=== PATIENT | female | born 1995 | race American Indian/Alaskan Native ===

== ENCOUNTER 2016-06-17 22:04 | Outpatient (CLI) | payer MEDICAID | END 2016-06-17 22:05 | disposition home or self-care (01) | DX: Z32.02 Encounter for pregnancy test, result negative (principal) ==

== ENCOUNTER 2016-11-11 14:09 | Outpatient (CLI) | payer MEDICAID | END 2016-11-11 14:10 | disposition home or self-care (01) | LOC: LAB.R 14:09 | PROVIDERS: ATTEND Family Medicine | DX: Z11.3 Encounter for screening for infections with a predominantly sexual mode of transmission (principal) | CPT/HCPCS: 87081; 87491; 87591 ==

== ENCOUNTER 2017-05-05 13:47 | Emergency (ER) | payer MEDICAID ==
[2017-05-05 14:15] LABS: BILIRUBIN,URINE NEGATIVE (NEGATIVE); PH,URINE 6.5 PH (5.0-7.5); UA w/ MICROSCOPIC CHARGE YES
[2017-05-05 14:29] LABS: UR CULTURE IF IND INDICATED; WBC,URINE 0-3 /HPF (0-5)
[2017-05-05] MEDS ORDERED: ACETAMINOPHEN 1,000 MG/100 ML 100 ML IV STA (14:32)
[2017-05-05] MEDS ORDERED: SODIUM CHLORIDE 0.9% 1,000 ML IV ONE (14:32)
[2017-05-05 14:35] LABS: BASOPHILS % (AUTO) 0.4 %; EOSINOPHILS % (AUTO) 0.3 %; HCT - HEMATOCRIT 34.7 % (37.0-47.0); LYMPHOCYTES # (AUTO) 1.3 10^3/uL (1.5-3.5); LYMPHOCYTES % (AUTO) 12.7 %; MEAN CORPUSCULAR HEMOGLOBIN 30.8 pg (27.0-31.0); MEAN CORPUSCULAR HGB CONC 34.8 g/dL (32.0-36.0); MEAN CORPUSCULAR VOLUME 88.7 fL (81.0-99.0); MEAN PLATELET VOLUME 7.8 fL (7.9-10.8); MONOCYTES # (AUTO) 0.5 10^3/uL (0.0-1.0); MONOCYTES % (AUTO) 5.2 %; NEUTROPHILS # (AUTO) 8.6 10^3/uL (1.5-6.6); NEUTROPHILS % (AUTO) 81.4 %; RED BLOOD COUNT 3.91 10^6/uL (4.20-5.40); RED CELL DISTRIBUTION WIDTH 12.9 % (12.0-15.0); UNCORRECTED WHITE BLOOD COUNT 10.5 x10^3/uL; WHITE BLOOD COUNT 10.5 x10^3/uL (4.8-10.8)
--- NOTE | 2017-05-05 14:35 | ED Physician Documentation ---
History of Present Illness - Stated complaint Stated Complaint: SIDE PX/19 WKS PREG - Chief complaint Chief Complaint: Abd Pain - Additonal information Additional information: hx from pt 21 y/o f states all prior pregnancies ended in early miscarriage sates she is 22 weeks by dates and 18+6 by early sono seen in ER here several days ago for right sided abd pain, had blood urine sono and no cause found pain persisted and pt called to fup at her OB clinic at [place] but was referred back to the ER again no fever + nausea no voit no diarrhea no bleeding feeling baby move no prior surgeries Review of Systems Constitutional: denies: Fever, Chills Cardiac: denies: Chest pain / pressure Respiratory: denies: Dyspnea GI: reports: Abdominal Pain, Nausea. denies: Vomiting, Diarrhea : reports: Now EGA (approx 18-22 weeks EGA) Musculoskeletal: denies: Back pain Endocrine: denies: Easy bruising / bleeding Immunocompromised: denies: Immunocompromised PD PAST MEDICAL HISTORY - Past Medical History Cardiovascular: None Respiratory: None Neuro: None Endocrine/Autoimmune: None GI: None CUSTOMER CONSULTANT: None : None HEENT: None Psych: Bipolar disorder Musculoskeletal: None Derm: None - Past Surgical History Past Surgical History: No - Present Medications Home Medications: Ambulatory Orders Medication Instructions Recorded Confirmed Nitrofurantoin [Macrobid] 100 mg PO BID #14 capsule 05/05/17 - Allergies Allergies/Adverse Reactions: Allergies Allergy/AdvReac Type Severity Reaction Status Date / Time Penicillins Allergy Severe Anaphylaxis Verified 04/01/16 20:39 cetirizine HCl * Allergy Intermediate Respiratory Verified 04/01/16 20:39 [From Zyrtec] codeine Allergy Unknown Verified 04/01/16 20:39 lamotrigine [From Lamictal] Allergy Rash Verified 04/01/16 20:39 loratadine [From Claritin] Allergy Respiratory Verified 04/01/16 20:39 Sulfa (Sulfonamide Allergy Hives Verified 04/01/16 20:39 Antibiotics) - Social History Does the pt smoke?: Yes Smoking Status: Current every day smoker Does the pt drink ETOH?: Yes Does the pt have substance abuse?: No - Immunizations Immunizations are current?: Yes - POLST Patient has POLST: No PD ED PE NORMAL - Vitals Vital signs reviewed: Yes - Cardiac Cardiac: RRR - Respiratory Respiratory: No respiratory distress - Abdomen Abdomen: Other (+ BS gravid TTP rlq higher than typical mcburneys, no rebound or guarding, no RUQ TTP and neg murphys) Results - Vitals Vitals: Vital Signs - 24 hr 05/05/17 05/05/17 05/05/17 13:53 15:56 16:47 Temperature 36.7 C 36.8 C 36.5 C Heart Rate 80 83 84 Respiratory 18 18 15 Rate Blood Pressure 102/54 L 102/45 L 108/59 L O2 Saturation 100 100 96 05/05/17 19:46 Temperature 36.9 C Heart Rate 73 Respiratory 16 Rate Blood Pressure 109/59 L O2 Saturation 100 Oxygen O2 Source Room air - Labs Labs: Laboratory Tests 05/05/17 05/05/17 05/05/17 14:00 14:28 14:28 WBC 10.5 RBC 3.91 L Hgb 12.0 Hct 34.7 L MCV 88.7 MCH 30.8 MCHC 34.8 RDW 12.9 Plt Count 230 MPV 7.8 L Neut # 8.6 H Lymph # 1.3 L Day # 0.5 Eos # 0.0 Baso # 0.0 Absolute Nucleated RBC 0.00 Nucleated RBC % 0.0 Sodium 135 Potassium 4.2 Chloride 103 Carbon Dioxide 23 Anion Gap 9.0 BUN 7 Creatinine 0.4 Estimated GFR (MDRD) 203 Glucose 85 Calcium 8.9 Total Bilirubin 0.4 AST 15 ALT 14 Alkaline Phosphatase 51 Total Protein 6.6 L Albumin 3.7 Globulin 2.9 Albumin/Globulin Ratio 1.3 Lipase 17 L Urine Color YELLOW Urine Clarity CLEAR Urine pH 6.5 Ur Specific [place] 1.025 Urine Protein NEGATIVE Urine Glucose (UA) NEGATIVE Urine Ketones TRACE Urine Occult Blood SMALL H Urine Nitrite POSITIVE H Urine Bilirubin NEGATIVE Urine Urobilinogen 0.2 (NORMAL) Ur Leukocyte Esterase NEGATIVE Urine RBC 0-5 Urine WBC 0-3 Ur Squamous Epith Cells RARE Squamous Urine Bacteria Many H Ur Microscopic Review INDICATED Urine Culture Comments INDICATED - Rads (name of study) abd sono Radiology: See rad report (verbal from radiologist Dr Lee - appendix not seen , no diagnositic, rec MRI) PD MEDICAL DECISION MAKING - ED course ED course: 21 y/o approx 18-22 weeks EGA with RLQ pain already seen in ER and worked up with labs and sono and dc with wait and watch who has worsening RLQ pain and is sent back to the ED again by her OB for concern for appy so got MRI and no appy does have UTI and will tx that Departure - Departure Disposition: 01 Home, Self Care Clinical Impression: UTI (urinary tract infection) Qualifiers: Urinary tract infection type: site unspecified Hematuria presence: without hematuria Qualified Code(s): N39.0 - Urinary tract infection, site not specified Qualifiers: Weeks of gestation: 18 weeks Qualified Code(s): Z3A.18 - 18 weeks gestation of Condition: Good Instructions: ED UTI Cystitis Female Follow-Up: Daiana Diaz MD [Primary Care Provider] - Prescriptions: Nitrofurantoin [Macrobid] 100 mg PO BID #14 capsule Comments: The ultrasound was again non diagnostic for appendicitis so we got a MRI without contrast and the appendix was well seen and normal You do not have appendicitis. You do have a bladder infection and I have prescribed macrobid Please follow up with your OB within the next few days for a follow up. Discharge Date/Time: 05/05/17 19:50
[2017-05-05 14:51] LABS: ALBUMIN/GLOBULIN RATIO 1.3 (1.0-2.2); BILIRUBIN,TOTAL 0.4 mg/dL (0.2-1.0); CREATININE 0.4 mg/dL (0.4-1.0); TOTAL PROTEIN 6.6 g/dL (6.7-8.2)
[2017-05-05 14:53] LABS: CALCIUM 8.9 mg/dL (8.5-10.3); POTASSIUM 4.2 mmol/L (3.5-5.0)
[2017-05-05] MEDS ORDERED: ACETAMINOPHEN 1,000 MG/100 ML 100 ML IV ONE (14:53)
--- NOTE | 2017-05-05 18:37 | MRI Preliminary Report ---
Exam: MRI ABDOMEN W/O Impression: 1. No evidence of appendicitis. 2. Mild related right hydronephrosis. [facility] SITE ID: [id number]
--- NOTE | 2017-05-05 18:39 | MRI Report ---
EXAM: MR ABDOMEN WITHOUT CONTRAST EXAM DATE: 05/05/2017 06:19 PM. CLINICAL HISTORY: Rlq pain, concern appy, sono non diag. COMPARISON: None. TECHNIQUE: Multiplanar breath-hold T1, [id number] sequences obtained through the abdom en on an MR scanner. No contrast administered. FINDINGS: The appendix is not well visualized due to crowding of right lower quadrant vessels and ovary. No eileen dence of a dilated appendix however seen. Right ovary normal in size and signal with a small amount o f periovarian fluid. There is trace dependent fluid within the pelvis likely physiologic. The left ov mi is likewise normal. The uterine cervix is closed measuring 3 cm in length. Posterior fundal placenta without evidence of abruption. No bowel obstruction. There is mild right hydroureteronephrosis secondary to compression o f the mid ureter by the gravid uterus. Impression: 1. No evidence of appendicitis. 2. Mild related right hydronephrosis. [facility] Referring Provider Line: [phone] SITE ID: [id number]
[2017-05-05] MEDS ORDERED: NITROFURANTOIN MACRO 100 MG CAPSULE PO STA (19:24)
[2017-05-05 19:47] VITALS: BP 109/59
[2017-05-05] MEDS ORDERED: NITROFURANTOIN MACRO 100 MG CAPSULE PO ONE (19:48)
--- NOTE | 2017-05-05 19:50 | Ultrasound Preliminary Report ---
Exam: US ABDOMEN LIMITED Impression: 1. The appendix is not seen. 2. No fluid in the right lower quadrant SITE ID: [id number]
--- NOTE | 2017-05-05 19:53 | Ultrasound Report ---
EXAM: ABDOMEN ULTRASOUND LIMITED EXAM DATE: 05/05/2017 04:05 PM. CLINICAL HISTORY: Rlq pain concern for appendicitis, 19 weeks EGA. COMPARISON: None. TECHNIQUE: Real-time scanning was performed with static images obtained. FINDINGS: Right lower quadrant ultrasound was performed. The appendix is not seen. No free fluid or complex flu id seen. Right ovary is normal in size measuring 2.9 x 1.9 x 2.0 cm. heart rate 142 bpm. Impression: 1. The appendix is not seen. 2. No fluid in the right lower quadrant Referring Provider Line: [phone] SITE ID: [id number]
== END 2017-05-05 19:50 | disposition home or self-care (01) ==
LOC: ED 13:47
DX: O23.42 Unspecified infection of urinary tract in pregnancy, second trimester (principal); O99.332 Smoking (tobacco) complicating pregnancy, second trimester; Z3A.18 18 weeks gestation of pregnancy
CPT/HCPCS: 36415; 74181; 76705; 80053; 81001; 83690; 85025; 87086; 87181; 96365; 99283; 99284; A9270; J0131; 81003

== ENCOUNTER 2017-07-30 09:44 | Outpatient (CLI) | payer MEDICAID ==
[2017-07-30 12:40] LABS: BASOPHILS # (AUTO) 0.1 10^3/uL (0.0-0.1); BASOPHILS % (AUTO) 0.4 %; EOSINOPHILS # (AUTO) 0.1 10^3/uL (0.0-0.7); EOSINOPHILS % (AUTO) 0.5 %; HGB - HEMOGLOBIN 10.8 g/dL (12.0-16.0); LYMPHOCYTES % (AUTO) 14.9 %; MEAN CORPUSCULAR HEMOGLOBIN 30.1 pg (27.0-31.0); MEAN CORPUSCULAR HGB CONC 34.1 g/dL (32.0-36.0); MEAN CORPUSCULAR VOLUME 88.4 fL (81.0-99.0); MONOCYTES # (AUTO) 1.2 10^3/uL (0.0-1.0); NEUTROPHILS % (AUTO) 75.2 %; PLT - PLATELET COUNT 210 10^3/uL (130-450); RED CELL DISTRIBUTION WIDTH 13.5 % (12.0-15.0); WHITE BLOOD COUNT 13.3 x10^3/uL (4.8-10.8)
[2017-07-30 12:51] LABS: BILIRUBIN,URINE NEGATIVE (NEGATIVE); GLUCOSE, URINE (UA) 100 mg/dL (NEGATIVE); KETONES,URINE (UA) NEGATIVE (NEGATIVE); LEUKOCYTE ESTERASE, URINE NEGATIVE (NEGATIVE); NITRITE,URINE NEGATIVE (NEGATIVE); OCCULT BLOOD,URINE NEGATIVE (NEGATIVE); PH,URINE 7.5 PH (5.0-7.5); PROTEIN,URINE NEGATIVE (NEGATIVE); UROBILINOGEN,URINE 1 (NORMAL) E.U./dL (NORMAL)
[2017-07-30 12:57] LABS: ALBUMIN 3.1 g/dL (3.2-5.5); BILIRUBIN,TOTAL 0.3 mg/dL (0.2-1.0); CALCIUM 8.3 mg/dL (8.5-10.3); CREATININE 0.4 mg/dL (0.4-1.0); TOTAL PROTEIN 6.1 g/dL (6.7-8.2)
[2017-07-30 12:58] LABS: AMORPHOUS SEDIMENT,UR Moderate /LPF; BACTERIA,URINE Few /HPF (None Seen); CLARITY,URINE CLEAR (CLEAR); CRYSTALS,URINE 6-10 Triple Phos /LPF; MUCUS,URINE Marked Strands; RBC,URINE None Seen /HPF (0-5); SQUAMOUS EPITHELIAL CELL,UR FEW Squamous (<= Few)
[2017-07-30 13:01] LABS: RBC MORPHOLOGY (MULTIPLE) 2+ ANISOCYTOSIS (NORMAL)
[2017-07-31 14:09] LABS: HEPATITIS C ANTIBODY NON-REACTIVE (NON-REACTIVE)
[2017-08-03 12:51] LABS: HSV 2 IGG TYPE SPECIFIC AB <0.90 index
== END 2017-07-30 09:45 | disposition home or self-care (01) ==
LOC: LAB.N 09:44
PROVIDERS: ATTEND Nurse Practitioner
DX: Z34.83 Encounter for supervision of other normal pregnancy, third trimester (principal); A60.00 Herpesviral infection of urogenital system, unspecified
CPT/HCPCS: 36415; 80053; 81001; 84443; 85025; 86695; 86696; 86803; 87491; 87591

== ENCOUNTER 2017-08-13 15:03 | Outpatient (CLI) | payer MEDICAID | END 2017-08-13 15:04 | disposition home or self-care (01) | LOC: LAB.N 15:03 | PROVIDERS: ATTEND Nurse Practitioner | DX: Z34.83 Encounter for supervision of other normal pregnancy, third trimester (principal) | CPT/HCPCS: 36415; 86900; 86901 ==

== ENCOUNTER 2017-08-23 21:04 | Observation (INO) | payer MEDICAID ==
[2017-08-23] MEDS ORDERED: ZOLPIDEM 5 MG TABLET PO PRN (23:14)
[2017-08-23] MEDS ORDERED: FLUCONAZOLE 100 MG TABLET PO SCH (23:45)
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
[2017-08-24] MEDS ORDERED: ONDANSETRON 4 MG/2 ML VIAL IVP PRN (00:16)
[2017-08-24] MEDS ORDERED: SODIUM CHLORIDE FLUSH 0.9% 10 ML SYRINGE ONE ×2 (00:29→06:31)
[2017-08-24] MEDS ORDERED: ONDANSETRON 4 MG/2 ML VIAL ONE (00:29)
[2017-08-24] MEDS: LACTATED RINGERS 1,000 ML IV SCH ×2 (00:45→06:30)
[2017-08-24 01:36] LABS: BASOPHILS # (AUTO) 0.1 10^3/uL (0.0-0.1); BASOPHILS % (AUTO) 0.4 %; EOSINOPHILS # (AUTO) 0.1 10^3/uL (0.0-0.7); EOSINOPHILS % (AUTO) 0.7 %; HGB - HEMOGLOBIN 10.2 g/dL (12.0-16.0); LYMPHOCYTES # (AUTO) 2.4 10^3/uL (1.5-3.5); MEAN CORPUSCULAR HEMOGLOBIN 27.9 pg (27.0-31.0); MEAN CORPUSCULAR HGB CONC 32.5 g/dL (32.0-36.0); MEAN CORPUSCULAR VOLUME 85.7 fL (81.0-99.0); MEAN PLATELET VOLUME 8.2 fL (7.9-10.8); MONOCYTES # (AUTO) 1.2 10^3/uL (0.0-1.0); MONOCYTES % (AUTO) 9.5 %; NEUTROPHILS # (AUTO) 9.1 10^3/uL (1.5-6.6); NEUTROPHILS % (AUTO) 70.4 %; PLT - PLATELET COUNT 216 10^3/uL (130-450); RED BLOOD COUNT 3.65 10^6/uL (4.20-5.40); RED CELL DISTRIBUTION WIDTH 13.6 % (12.0-15.0); WHITE BLOOD COUNT 12.9 x10^3/uL (4.8-10.8)
[2017-08-24 01:40] LABS: MUDS CUTOFF CONCENTRATIONS CUTOFF CONC BELOW:
[2017-08-24 01:54] LABS: AMPHETAMINE SCREEN,URINE NEGATIVE (NEGATIVE); BENZODIAZEPINES SCREEN, URINE NEGATIVE (NEGATIVE); COCAINE SCREEN URINE NEGATIVE (NEGATIVE); METHADONE SCREEN, URINE NEGATIVE (NEGATIVE); METHAMPHETAMINES SCREEN, URINE NEGATIVE (NEGATIVE); OPIATE SCREEN, URINE NEGATIVE (NEGATIVE); OXYCODONE SCREEN, URINE NEGATIVE (NEGATIVE); PROPOXYPHENE SCREEN, URINE NEGATIVE (NEGATIVE); TRICYCLIC ANTIDEPRESSANT,URINE NEGATIVE (NEGATIVE)
[2017-08-24 03:31] LABS: HB2 TOTAL 11.1 g/dL; HEMOGLOBIN A1C 0.31 g/dL; HEMOGLOBIN A1C % 4.7 % (4.6-6.2)
[2017-08-24 03:32] LABS: BILIRUBIN,URINE NEGATIVE (NEGATIVE); GLUCOSE, URINE (UA) 100 mg/dL (NEGATIVE); KETONES,URINE (UA) 15 mg/dL (NEGATIVE); LEUKOCYTE ESTERASE, URINE NEGATIVE (NEGATIVE); NITRITE,URINE NEGATIVE (NEGATIVE); OCCULT BLOOD,URINE NEGATIVE (NEGATIVE); PROTEIN,URINE NEGATIVE (NEGATIVE); UROBILINOGEN,URINE 1 (NORMAL) E.U./dL (NORMAL)
[2017-08-24 03:36] LABS: CLARITY,URINE CLEAR (CLEAR)
[2017-08-24 03:38] LABS: BACTERIA,URINE Rare /HPF (None Seen); SQUAMOUS EPITHELIAL CELL,UR MOD Squamous (<= Few)
[2017-08-24] MEDS ORDERED: BETAMETHASONE 30 MG/5 ML VIAL IM SCH (12:00)
--- NOTE | 2017-08-24 14:45 | Discharge Plan ---
Discharge Plan Disposition: 01 Home, Self Care Condition: Good Diet: Regular Activity Restrictions: Activity as Tolerated Shower Restrictions: No Driving Restrictions: No Weight Bearing: Full Weight Additional Instructions or Follow Up instructions: Patient was instructed to keep her [facility] perinatology appointment. She was informed that unless she has a evaluation, our service will not be able to care for her. We made her an appointment for which she states she intends to change it. She will be seen tomorrow around noon for her second dose of betamethasone. On Wednesday no she will have a formal anatomy scan ultrasound. If she keeps her appointment at [facility] she is instructed to send a copy of their records to us. After review we will be able to determine if we can care for her. She is scheduled for a follow-up at our offices in 2-3 weeks to make that determination No Smoking: If you smoke, Please STOP! Call for help. Follow-up with: Vicki Garcia DNP [Primary Care Provider] -
[2017-08-24 15:34] VITALS: BP 114/62
--- NOTE | 2017-08-24 15:39 | Ultrasound Report ---
OB ULTRASOUND: 08/24/2017 CLINICAL INDICATION: Late care, check dating. TECHNIQUE: Real-time scanning was performed with mortician supplies sales representative static images obtained. LAST MENSTRUAL PERIOD 12/24/2016 Clinical Age 34 weeks 5 days US Age 34 weeks 0 days EFW Hadlock 2331 grams EFW% Hadlock -- Heart Rate 139 bpm EDC 09/30/2017 US EDC 10/05/2017 BPD Hadlock 34 weeks 0 days; Mean mm 84 HC Hadlock 35 weeks 0 days; Mean mm 313 AC Hadlock 34 weeks 5 days; Mean mm 307 FL Hadlock 32 weeks 2 days; Mean mm 62 Presentation cephalic Placental Location posterior Cervical Length -- Amniotic Fluid ADIA 12.54 cm; MVP 4.4 cm FINDINGS There is a single viable intrauterine gestation, in cephalic presentation. heart rate is 139 BPM. By size, the fetus measures 34 weeks 0 days (34 weeks 5 days by patient-given dating). Amniotic fluid volume is normal, with an ADIA of 12.5. The placenta is posterior, without evidence of previa. Estimated weight by Hadlock method is 2331 grams. Due to the emergent nature of the procedure, full anatomy scan was deferred, to a scheduled appointment on 08/26/2017. IMPRESSION: SINGLE VIABLE INTRAUTERINE GESTATION, WITH SIZE IN KEEPING WITH PROVIDED DATA. POSTERIOR PLACENTA, WITHOUT EVIDENCE OF PREVIA. TD: 08/24/2017 11:08 YANICK
--- NOTE | 2017-08-24 22:30 | DISCHARGE SUMMARY ---
Physician: Guillermo Nelson MD DATE OF ADMISSION: 08/23/2017 DATE OF DISCHARGE: 08/24/2017 CHIEF COMPLAINT 1. contractions. 2. Fragmented and inadequate obstetric care. 3. Bipolar disorder. 4. Epilepsy (patient denies). 5. Limited personal resources/poverty. 6. Repetitive spontaneous . 7. Abnormal 1 hour glucose challenge. HISTORY: The patient is a 21-year-old 6, para 0-0-5-0 woman who is at 33 weeks and 6 days gestation. She has had fragmented care. She was originally seen at [facility], but expelled from their practice due to behavior issues. The records note seizure disorder, but the patient states that she has never had seizures. She was referred from our practice to Perinatology due to her high risk profile. She states that she could not find transportation and never followed up on those visits. Reference typewritten H and P. HOSPITAL COURSE: Patient was examined and found to have uterine contractions, but they did not coalesce into a labor pattern. The cervix was thick and closed with a discharge present. GC and chlamydia cultures were taken. Patient has fragmented care and we took the opportunity to organize her care. She states that she is A positive, while the record states A negative. Patient underwent 1 hour glucose challenge, which was 158. She had a hemoglobin A1c that was 4.7, in the normal range. We will arrange for a 3-hour glucose challenge test. Patient underwent a quick assessment ultrasound, which revealed a single viable IUP with a heart rate of 139. Weight was 23 31 grams consistent with 34 weeks 0 days. Full anatomy scan was scheduled for . Patient underwent social work assessment. Social work assessment was performed and arrangements were made for transportation to the [facility]. We obtained an appointment on with Dr. Iglesias. The patient states she will probably not be able to keep this appointment and will reschedule. We offered to reschedule for her, but she declined. Patient was discharged to home. She is instructed to come back tomorrow for her second series of betamethasone injections 12 mg. She will have a formal ultrasound on for anatomy. After completing all the above, she will be seen in our offices in 2- 3 weeks to determine if it is appropriate to care for her at a level 1 center. TD: 08/24/2017 22:29 YANICK
== END 2017-08-24 15:45 | disposition home or self-care (01) ==
LOC: WFO 21:04 → FBP 21:06 → WFO 23:00 → FBP 23:06
PROVIDERS: ADMIT Obstetrics & Gynecology; ATTEND Obstetrics & Gynecology
DX: O09.33 Supervision of pregnancy with insufficient antenatal care, third trimester (principal); Z3A.33 33 weeks gestation of pregnancy; O99.810 Abnormal glucose complicating pregnancy; O99.343 Other mental disorders complicating pregnancy, third trimester; F31.9 Bipolar disorder, unspecified; O99.333 Smoking (tobacco) complicating pregnancy, third trimester; F17.200 Nicotine dependence, unspecified, uncomplicated; Z59.6 Low income
CPT/HCPCS: 76805; 80306; 81001; 82950; 83036; 85025; 86850; 86900; 86901; 87081; 87491; 87591; 96361; 96372; 96374; 99214; A9270; G0378; J7120; 87086

== ENCOUNTER 2017-08-25 12:49 | Outpatient (CLI) | payer MEDICAID ==
[2017-08-25] MEDS ORDERED: BETAMETHASONE 30 MG/5 ML VIAL IM SCH (12:56)
== END 2017-08-25 13:04 | disposition home or self-care (01) ==
LOC: WFO 12:49 → FBP 12:51 → WFO 13:04
PROVIDERS: ATTEND Obstetrics & Gynecology
DX: Z34.83 Encounter for supervision of other normal pregnancy, third trimester (principal)
CPT/HCPCS: 96372

== ENCOUNTER 2017-08-26 07:34 | Outpatient (CLI) | payer MEDICAID ==
--- NOTE | 2017-08-26 14:44 | Ultrasound Report ---
OB ULTRASOUND: 08/26/2017 CLINICAL INDICATION: anatomy, late care. TECHNIQUE: Real-time scanning was performed with canvas products sales representative static images obtained. LAST MENSTRUAL PERIOD 12/29/2016 Clinical Age 34 weeks 2 days US Age 34 weeks 0 days EFW Hadlock 2394 grams EFW% Hadlock 44% Heart Rate 130 bpm EDC 10/05/2017 US EDC 10/07/2017 BPD Hadlock 33 weeks 2 days; Mean mm 83 HC Hadlock 34 weeks 6 days; Mean mm 312 AC Hadlock 35 weeks 0 days; Mean mm 311 FL Hadlock 33 weeks 0 days; Mean mm 64 Presentation cephalic Placental Location posterior Cervical Length not seen Amniotic Fluid ADIA 9.3 cm; MVP 3.5 cm FINDINGS There is a single viable intrauterine gestation, in cephalic presentation. heart rate is 130 BPM. The placenta is posterior. Amniotic fluid volume is normal, with an ADIA of 9.3. By size, the fetus measures 34 weeks 0 days (34 weeks 2 days by sonogram on , 35 weeks 0 days by provided data). The following anatomic structures were visualized and appear normal: The intracranial contents, including the ventricles and posterior fossa; the lips and orbits; the spine; the heart, including 4 chamber view and outflow tracts, and diaphragm; the abdominal contents, including the stomach, the bilateral kidneys, and urinary bladder, as well as a normal 3-vessel cord insertion; 4 limbs. Due to late dates and positioning, cord insertion, placental cord insertion, and leg-foot relationships are suboptimally visualized. No free fluid or adnexal lesion is appreciated. IMPRESSION: SINGLE VIABLE INTRAUTERINE GESTATION, WITH SIZE IN KEEPING WITH PROVIDED DATA. NONVISUALIZATION OF THE AND PLACENTAL CORD INSERTIONS WELL THE BILATERAL FOOT-LEG RELATIONSHIPS, DUE TO LATE DATES AND POSITIONING. OTHERWISE, NORMAL ANATOMIC SURVEY. TD: 08/26/2017 12:31 YANICK
== END 2017-08-26 07:35 | disposition home or self-care (01) ==
LOC: DI 07:34
PROVIDERS: ATTEND Obstetrics & Gynecology
DX: Z36.9 Encounter for antenatal screening, unspecified (principal)
CPT/HCPCS: 76811

== ENCOUNTER 2017-09-04 00:09 | Outpatient (CLI) | payer MEDICAID ==
[2017-09-04 00:30] VITALS: BP 111/71
== END 2017-09-04 01:19 | disposition home or self-care (01) ==
LOC: WFO 00:09 → FBP 00:11 → WFO 01:19
PROVIDERS: ATTEND Obstetrics & Gynecology
DX: O09.33 Supervision of pregnancy with insufficient antenatal care, third trimester (principal); Z53.21 Procedure and treatment not carried out due to patient leaving prior to being seen by health care provider; Z3A.36 36 weeks gestation of pregnancy
CPT/HCPCS: 99212

== ENCOUNTER 2017-09-12 04:47 | Outpatient (CLI) | payer MEDICAID ==
[2017-09-12 08:14] VITALS: BP 113/64
== END 2017-09-12 09:10 | disposition home or self-care (01) ==
LOC: WFO 04:47 → FBP 04:49 → WFO 09:10
PROVIDERS: ATTEND Obstetrics & Gynecology
DX: Z34.83 Encounter for supervision of other normal pregnancy, third trimester (principal)
CPT/HCPCS: 99213

== ENCOUNTER 2017-09-14 23:39 | Outpatient (CLI) | payer MEDICAID ==
[2017-09-15 01:21] LABS: RUPTURE OF MEMBRANES PLUS NEGATIVE (NEGATIVE)
[2017-09-15 04:00] VITALS: BP 119/78
--- NOTE | 2017-09-15 14:45 | PROVIDER PROGRESS NOTE ---
Subjective - Prog Note Date Prog Note Date: 09/15/17 Prog Note Time: 06:30 - Subjective Pt reports feeling: No change Subjective: Marie Araujo is a 21-year-old primigravida at 37 weeks who reports regular uterine contractions and possible leaking membranes. She has no fevers chills or UTI symptoms. She reports no pelvic pressure Objective - Vital Signs/Intake & Output Reviewed Vital Signs: Yes - Objective General Appearance: positive: No acute distress Respiratory: positive: Breath sounds nml Cardiovascular: positive: Regular rate & rhythm Abdomen: positive: Non-tender Extremities: positive: Non-tender, No pedal edema Comments/Other: Pelvic exam: After 2 hours of walking patient's cervix has not changed. There is no evidence of ruptured membranes. Patient instructed to rest at home. Signs and symptoms of labor reviewed. Regular contraction pattern not palpated ; normal resting tone; cervix unchanged despite 2 hours at 2 cm -1 station bag water intact. amnio stat negative external monitors strip no contractions baseline 150 reactive - Lab Results Other Labs: Lab Results x24hrs 09/15/17 Range/Units 00:20 Membranes Rupture NEGATIVE (NEGATIVE) - Other Results/Comments Other Results/Comments: Note physical evaluation done by nursing staff transfer text Assessment/Plan - Assessment/Plan Assessment: No cervical change; 1 heart tracing; not in labor; Plan: Patient sent home with warning sign and callback instructions. She will keep her next office appointment.
== END 2017-09-15 03:38 | disposition home or self-care (01) ==
LOC: WFO 23:39 → FBP 23:40 → WFO 09-15 03:38
PROVIDERS: ATTEND Obstetrics & Gynecology
DX: Z34.83 Encounter for supervision of other normal pregnancy, third trimester (principal)
CPT/HCPCS: 84112; 99214

== ENCOUNTER 2017-09-16 00:02 | Inpatient (IN) | payer MEDICAID ==
[2017-09-16] MEDS ORDERED: SODIUM CHLORIDE FLUSH 0.9% 10 ML SYRINGE IVP PRN (00:33)
[2017-09-16] MEDS ORDERED: OXYTOCIN/SODIUM CHLORIDE 500 ML IV ONE (00:52)
[2017-09-16] MEDS ORDERED: SODIUM CHLORIDE FLUSH 0.9% 10 ML SYRINGE IVP SCH (01:00)
[2017-09-16 01:48] LABS: BASOPHILS # (AUTO) 0.1 10^3/uL (0.0-0.1); BASOPHILS % (AUTO) 0.9 %; EOSINOPHILS # (AUTO) 0.1 10^3/uL (0.0-0.7); EOSINOPHILS % (AUTO) 0.5 %; HGB - HEMOGLOBIN 10.7 g/dL (12.0-16.0); MEAN CORPUSCULAR HEMOGLOBIN 28.3 pg (27.0-31.0); MEAN CORPUSCULAR HGB CONC 34.3 g/dL (32.0-36.0); MEAN CORPUSCULAR VOLUME 82.6 fL (81.0-99.0); MEAN PLATELET VOLUME 8.3 fL (7.9-10.8); MONOCYTES # (AUTO) 1.4 10^3/uL (0.0-1.0); MONOCYTES % (AUTO) 10.3 %; NEUTROPHILS % (AUTO) 73.3 %; PLT - PLATELET COUNT 208 10^3/uL (130-450); RED BLOOD COUNT 3.78 10^6/uL (4.20-5.40); RED CELL DISTRIBUTION WIDTH 13.8 % (12.0-15.0); WHITE BLOOD COUNT 13.6 x10^3/uL (4.8-10.8)
[2017-09-16] MEDS ORDERED: fent/BUPIV 2 MCG/0.125% 250 ML EP ONE (02:08)
[2017-09-16] MEDS: LACTATED RINGERS 1,000 ML IV SCH ×2 (02:39→09:01)
[2017-09-16] MEDS: ONDANSETRON 4 MG/2 ML VIAL IVP PRN ×2 (05:32→09:56)
[2017-09-16] MEDS: OXYTOCIN/SODIUM CHLORIDE 500 ML IV SCH ×2 (06:01→15:10)
--- NOTE | 2017-09-16 06:19 | PROVIDER PROGRESS NOTE ---
Labor Progress Note - Uterine Monitoring Uterine Monitoring Mode: positive: External toco Contraction Intensity: positive: Mild to moderate Uterine Resting Tone: positive: Soft - Monitoring Monitor Mode: positive: External ultrasound Heart Rate Baseline: 135 Heart Rate Variability: positive: Moderate (6-25 bmp) Accelerations: positive: Present, 15x15 Decelerations: positive: None Strip Review: positive: Category I - Vaginal Exam Dilation (in cm): 5 Effacement (%): 100% Station: 0 - Labor Progress Note Labor Progress Note/Additional Text: Patient currently has epidural in place and feels very comfortable. Her progress is been slow and not all contractions palpate to the moderate range. Therefore we will augment with low dose Pitocin drip. AROM clear fluid
[2017-09-16] MEDS ORDERED: OXYTOCIN/SODIUM CHLORIDE 500 ML IV SCH (07:00)
--- NOTE | 2017-09-16 08:02 | PROVIDER PROGRESS NOTE ---
Labor Progress Note - Uterine Monitoring Contraction Intensity: positive: Mild - Monitoring Monitor Mode: positive: External ultrasound Heart Rate Baseline: 120 Heart Rate Variability: positive: Moderate (6-25 bmp) Accelerations: positive: Present, 15x15 Decelerations: positive: None Strip Review: positive: Category I - Vaginal Exam Dilation (in cm): 7 Effacement (%): 100% Station: 0 Cervical Position: Midposition - Labor Progress Note Labor Progress Note/Additional Text: Initially, tocodynamometer heart tracing was difficult to follow on external monitor and scalp lead placed. Patient is very comfortable and amniotic fluid remains clear. Nursing staff was instructed to increase the Pitocin since it was only on 2 milliunits. If it becomes difficult to follow contractions IUPC may be placed We again discussed the issue of GBS status. She is aware that GBS can lead to poor outcome inclusive of pneumonia sepsis and in rare occasions . She states that during a hospital encounter GBS culture was taken at 34 weeks and found to be negative. I stated that usually the culture is done at 36 -37 weeks for best reliability. I asked that she consider prophylaxis which she strongly refused. Given patient's mood disorder and prior history of belligerent behavior, it is most important to maintain good rapport in order to optimize chances for a uneventful delivery. Patient will need a health social work professor evaluation and probable CPS referral. This question was not addressed in order to keep the patient in a cooperative mood. Urine toxicology would not be useful since patient had fentanyl. Patient has several medical problems inclusive of juvenile arthritis, and hydro- nephrosis. Her hydronephrosis had improved during her last [facility] check. I explained that we may re-perform renal ultrasound after delivery. Patient states that her arthritis is currently in remission but its course varies.
--- NOTE | 2017-09-16 08:10 | PROVIDER PROGRESS NOTE ---
Subjective - Prog Note Date Prog Note Date: 09/16/17 Prog Note Time: 08:10 - Subjective Subjective: Informed patient that I must go to clinic and will no longer be available. She is informed that Dr. Carey will assume responsibility for obstetric care. Dr. Carey briefed of patient's situation. Objective - Vital Signs/Intake & Output Vital Signs: Vital Signs x48h Temp Pulse Resp BP Pulse Ox 09/16/17 00:13 98.2 F 87 22 124/85 H 99 Intake & Output: Intake & Output 09/13/17 09/14/17 09/15/17 09/16/17 23:59 23:59 23:59 23:59 Intake Total 500.85 Balance 500.85 - Lab Results Fish Bones: 09/16/17 01:30 Other Labs: Lab Results x24hrs 09/16/17 Range/Units 01:30 WBC 13.6 H (4.8-10.8) x10^3/uL RBC 3.78 L (4.20-5.40) 10^6/uL Hgb 10.7 L (12.0-16.0) g/dL Hct 31.2 L (37.0-47.0) % MCV 82.6 (81.0-99.0) fL MCH 28.3 (27.0-31.0) pg MCHC 34.3 (32.0-36.0) g/dL RDW 13.8 (12.0-15.0) % Plt Count 208 (130-450) 10^3/uL MPV 8.3 (7.9-10.8) fL Neut # 10.0 H (1.5-6.6) 10^3/uL Lymph # 2.0 (1.5-3.5) 10^3/uL [place] # 1.4 H (0.0-1.0) 10^3/uL Eos # 0.1 (0.0-0.7) 10^3/uL Baso # 0.1 (0.0-0.1) 10^3/uL Absolute Nucleated RBC 0.03 x10^3/uL Nucleated RBC % 0.2 /100WBC
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
[2017-09-16] MEDS ORDERED: miSOPROStol 200 MCG TABLET ONE (09:43)
[2017-09-16] MEDS ORDERED: MINERAL OIL LIGHT 10 ML MC ONE (09:43)
[2017-09-16] MEDS ORDERED: LIDOCAINE 1% 50 ML MDV ONE (09:45)
[2017-09-16] MEDS ORDERED: ACETAMINOPHEN 325 MG TABLET PO PRN (12:18)
[2017-09-16] MEDS ORDERED: HYDROCORTISONE/PRAMOXINE 10 GM PR PRN (12:18)
[2017-09-16] MEDS ORDERED: HYDROCORTISONE 1% CREAM 28 GM TUBE PR PRN (12:18)
[2017-09-16] MEDS ORDERED: OXYTOCIN/SODIUM CHLORIDE 250 ML IV ONE (12:18)
[2017-09-16] MEDS ORDERED: WITCH HAZEL/GLYCERIN 1 EACH MED..PAD TOP PRN (12:18)
[2017-09-16] MEDS ORDERED: oxyCODONE 5 MG TABLET PO PRN (12:18)
--- NOTE | 2017-09-16 12:29 | DELIVERY NOTE ---
Delivery Note - Labor Labor: positive: Augmented by ARM, Augmented by oxytocin - Infant Delivery Method Delivery Method: positive: Spontaneous vaginal delivery - Presentation Presentation: positive: Vertex, EBONIE - right occiput anterior - Nuchal Cord Nuchal Cord: positive: None (True Knot) - Anesthetic Anesthetic Type: Anesthetic: positive: Lidocaine - 1% plain - Amniotic Fluid Description Amniotic Fluid Description: positive: Moderate meconium - Episiotomy Type Episiotomy Type: positive: None - Laceration Laceration: positive: Labial (First Degree Bilat) - Suture Suture Type: positive: Vicryl Suture Size: positive: 3-0 - Delivery Outcome Delivery Outcome: positive: Livebirth - [place]: positive: Placed in direct skin contact with mother, Suctioned, Bulb syringe, [place] used sex: positive: Female - Cord Cord: positive: 3 vessels, True knot - Placenta Placenta: positive: Intact, Spontaneous - Estimated Blood Loss Estimated Blood Loss (in cc): 300 - Delivery Comments (Free Text/Narrative) Delivery Comments (Free Text/Narrative): Pt has been having contractions for the past 5 days. Last night at about 2345 developed a large red blood clot. Presented to L&D 0038. evaluated and AROM at 0544. Epidural for labor analgesia. Augmented with Pitocin at 0600. progressed to complete at 1019. Pushed well. at 1139 Live female infant Apgars 8/9. EBONIE with compound Hand. True knot seen in the cord. bilateral labial lacerations repaired with local and 3-0 vicril. Placenta followed at 1200intacted. EBL 300 ml.
[2017-09-16] MEDS ORDERED: LACTATED RINGERS 1,000 ML IV SCH (13:00)
[2017-09-16 13:10] LABS: BILIRUBIN,URINE NEGATIVE (NEGATIVE); GLUCOSE, URINE (UA) NEGATIVE (NEGATIVE); KETONES,URINE (UA) NEGATIVE (NEGATIVE); LEUKOCYTE ESTERASE, URINE NEGATIVE (NEGATIVE); NITRITE,URINE NEGATIVE (NEGATIVE); OCCULT BLOOD,URINE SMALL (NEGATIVE); PH,URINE 5.5 PH (5.0-7.5); PROTEIN,URINE NEGATIVE (NEGATIVE); UROBILINOGEN,URINE 0.2 (NORMAL) E.U./dL (NORMAL)
[2017-09-16 13:34] LABS: BACTERIA,URINE None Seen /HPF (None Seen); CLARITY,URINE CLEAR (CLEAR); RBC,URINE 0-5 /HPF (0-5); SQUAMOUS EPITHELIAL CELL,UR NONE SEEN (<= Few)
[2017-09-16] MEDS: IBUPROFEN 600 MG TABLET PO SCH ×2 (13:36→20:30)
[2017-09-16] MEDS: ACETAMINOPHEN 500 MG TABLET PO PRN ×2 (14:10→22:46)
[2017-09-16] MEDS: SIMETHICONE CHEW 80 MG TABLET PO SCH ×2 (18:20→20:31)
[2017-09-16] MEDS: DOCUSATE SODIUM 100 MG CAPSULE PO SCH (20:31)
[2017-09-17 05:46] LABS: BASOPHILS % (AUTO) 0.3 %; EOSINOPHILS # (AUTO) 0.1 10^3/uL (0.0-0.7); EOSINOPHILS % (AUTO) 0.8 %; LYMPHOCYTES % (AUTO) 16.3 %; MEAN CORPUSCULAR HEMOGLOBIN 27.3 pg (27.0-31.0); MEAN CORPUSCULAR HGB CONC 32.3 g/dL (32.0-36.0); MEAN CORPUSCULAR VOLUME 84.4 fL (81.0-99.0); MEAN PLATELET VOLUME 8.2 fL (7.9-10.8); MONOCYTES # (AUTO) 1.2 10^3/uL (0.0-1.0); MONOCYTES % (AUTO) 9.9 %; NEUTROPHILS # (AUTO) 9.1 10^3/uL (1.5-6.6); NEUTROPHILS % (AUTO) 72.7 %; PLT - PLATELET COUNT 207 10^3/uL (130-450); RED BLOOD COUNT 3.32 10^6/uL (4.20-5.40); RED CELL DISTRIBUTION WIDTH 14.6 % (12.0-15.0); WHITE BLOOD COUNT 12.5 x10^3/uL (4.8-10.8)
[2017-09-17] MEDS: DOCUSATE SODIUM 100 MG CAPSULE PO SCH (08:19)
[2017-09-17] MEDS: IBUPROFEN 600 MG TABLET PO SCH ×2 (08:19→14:25)
[2017-09-17] MEDS: ACETAMINOPHEN 500 MG TABLET PO PRN (08:20)
--- NOTE | 2017-09-17 11:57 | DISCHARGE SUMMARY ---
Physician: Guillermo Nelson MD DATE OF ADMISSION: 09/16/2017 DATE OF DISCHARGE: 09/17/2017 DIAGNOSES 1. A 38-week 0-day , in labor. 2. Meconium. 3. Compound presentation, right hand. 4. True knot. 5. Bipolar disorder with anxiety. 6. Maternal hydronephrosis. 7. Maternal blood type Rh negative. 8. GBS status uncertain. 9. Anemia in . PROCEDURE: Vaginal delivery with minor laceration repair (Dr Carey) COMPLICATIONS: None HISTORY: Patient is a 21-year-old 7, para 0-0-6-0, who has had sporadic care in this . She initially began her care with [facility], but was expelled from the practice due to belligerent behavior. She did have an initial OB ultrasound at 12 weeks 5 days that set the EDC 10/10/2017. Her care has been sporadic with us and she has only had 2 office visits, but tended to drop in unannounced for a different problems. Reference my detailed evaluation from and L and D visit on 2017. In her records, there is reported seizure disorder, which she denies. She is known to have bipolar disorder and does not take any medications and is not followed by psychology or psychiatry. She was originally referred to perinatology psych care, but could not access this because of transportation issues. She also reports juvenile arthritis that is in remission. HOSPITAL COURSE: Patient had been seen several times over the last few days and on presentation was noted to have cervical change and was admitted. Her GBS status was not known, but a prior culture at 33 weeks 6 days was negative. She entered the active phase and became quite painful. She had an uneventful placement of epidural which calmed her, but unfortunately decreased uterine contractions. She had artificial rupture of membranes at roughly 5:30 and Pitocin augmentation started at 6 a.m. Shift change occurred at [address] Carey assuming care responsibilities. Throughout, the heart tracing remained category 1. She went on to completion and pushed with good effort to deliver a living female infant weighing 6 pounds 15 ounces and scoring Apgars of 8 and 9. Placenta was delivered intact and blood loss was estimated at 300. Mother and baby bonded well. The patient nursed without major difficulty. Some instruction on latch on was needed. She rapidly regained full diet and activity. Baseline hemoglobin was 10.7 and post-delivery 9.0. There was a mild leukocytosis at 12.5 as expected with labor. career services officer evaluated the patient and CPS was not involved. Pediatrics evaluated the and found that discharge was appropriate later on day #1. Patient and family strongly desired discharge. She was given self-care and care instructions including warning and callback symptoms. DISCHARGE MEDICATIONS 1. Ferrous sulfate 325 b.i.d. 2. Motrin 600 q.6 hours p.r.n. pain. 3. Colace 250 b.i.d. FOLLOWUP: [facility], and as scheduled with Pediatrics. TD: 09/17/2017 11:56 MTDSaundra
[2017-09-17 12:14] VITALS: BP 116/73
--- NOTE | 2017-09-17 17:24 | Labor Flowsheet ---
Labor Flowsheet Datetime Report Generated by CPN: 09/17/2017 17:24 Datetime: 09/17/2017 12:14 Pulse: 96 SpO2 (%): 99 LaborFlag: Labor Datetime: 09/17/2017 12:13 VITAL SIGNS NBP Sys/Barb/Mean (mmHg): 116 : 73 : 82 Datetime: 09/16/2017 11:36 PATIENT CARE Oxygen Method: Room Air Datetime: 09/16/2017 11:08 Monitor Interventions for UA: [place] Adjusted Datetime: 09/16/2017 11:00 Stage of : Labor Temperature (C): 37.0 Temperature Route: Oral UTERINE ACTIVITY Monitor Mode: External Frequency (min): 2 Quality: Strong Duration (sec): 40-60 Pattern: Normal: <= 5 Contractions in 10 Minutes Resting Tone (Palpate): Relaxed Pitocin Checklist: At Least 1 Acceleration of 15 bpm x 15 Seconds in 30 Minutes or Adequate Variabi lity; No More than 1 Late Deceleration Occurred in Past 30 Minutes; No More than 2 Variable Decelerat ions > 60 Seconds in Duration and decreasing >60 bpm in 30 minutes; No More than 5 Uterine Contractio ns in 10 Minutes for any 20 Minute Interval; Uterus Palpates Soft between Contractions Contraction Comments: pushing ASSESSMENT A Monitor Mode: Internal Scalp Electrode FHR Baseline Rate : 130 Variability: Moderate 6-25 bpm Accelerations: 15X15 Decelerations: None Category: Category I Datetime: 09/16/2017 10:56 Plan of Care: Labor Labor/Induction: Labor Stages; Pushing Methods Datetime: 09/16/2017 10:48 Patient Position/Activity: High Fowlers Datetime: 09/16/2017 10:36 Provider Reviewed Strip: Yes Strip Reviewed by: Dr. Giem COMMUNICATION Communication: Provider at Bedside Notification Reason: Status Update Datetime: 09/16/2017 10:23 Provider Notified (Name): Dr. Giem Datetime: 09/16/2017 10:19 VAGINAL EXAM Dilatation (cm): 10.0 Effacement (%): 100 Station: 1 Exam by: jett Welsh Vaginal Bleeding: None Cervix, Position: Midposition Datetime: 09/16/2017 10:18 I/O Interventions: Straight Cath (ml) @ 350 Datetime: 09/16/2017 09:59 Patient Care Comments: pt sitting up for nausea, zofran given IV Datetime: 09/16/2017 09:58 Antiemetics/Antacids: Zofran (mg) @ 4 Datetime: 09/16/2017 09:50 ANESTHESIA Anesthesia Plans: Epidural Anesthesia Level Check: T6- Xyphoid Datetime: 09/16/2017 08:38 Communication Comments: discussing plan of care Datetime: 09/16/2017 07:51 FHR Baseline Changes: No Baseline Change MEDICATIONS Pitocin (milliunits): Increased to @ 4 TEACHING Instructional Method: Verbal Teaching Comments: patient's mother is very vocal in regards to patient's care, it's difficult to s peak only to patient causing a break in communication between patient and the care team Datetime: 09/16/2017 07:25 Monitor Interventions for FHR: FSE Applied Datetime: 09/16/2017 05:44 Membrane Status: Ruptured Membranes Rupture Method: Artificial Amniotic Fluid Color: Bloody Amniotic Fluid Amount: Moderate Amniotic Fluid Odor: Normal Membrane Comments: arom by Dr. Nelson Datetime: 09/16/2017 05:29 Respirations: 18 Datetime: 09/16/2017 04:51 Cervix, Consistency: Soft Datetime: 09/16/2017 02:45 Comments: Poor tracing at times due to maternal repositioning Datetime: 09/16/2017 02:31 Epidural Procedure Other: Pump Started Datetime: 09/16/2017 02:16 Epidural Procedure: Test Dose Datetime: 09/16/2017 02:09 Epidural Positioning: Sitting Datetime: 09/16/2017 02:06 PROCEDURE TIME OUT Procedure Verify: Correct Patient Identity; Agreement on Procedure to be Done; Correct Patient Posi tion Datetime: 09/16/2017 01:47 Anesthesia Comments: Anesthesia called, will be in.
== END 2017-09-17 16:26 | disposition home or self-care (01) | DRG 775 ==
LOC: WFO 00:02 → FBP 00:03 → WFO 00:33 → FBP 00:34 → EEVIPCON 00:34
PROVIDERS: ADMIT Obstetrics & Gynecology; ATTEND Obstetrics & Gynecology
PROC: 10E0XZZ Delivery of Products of Conception, External Approach (ICD-10-PCS; principal; 2017-09-16)
PROC: 0HQ9XZZ Repair Perineum Skin, External Approach (ICD-10-PCS; 2017-09-16)
PROC: 10907ZC Drainage of Amniotic Fluid, Therapeutic from Products of Conception, Via Natural or Artificial Opening (ICD-10-PCS; 2017-09-16)
DX: O99.344 Other mental disorders complicating childbirth (principal); N13.30 Unspecified hydronephrosis; Z37.0 Single live birth; Z3A.38 38 weeks gestation of pregnancy; O69.2XX0 Labor and delivery complicated by other cord entanglement, with compression, not applicable or unspecified; O77.0 Labor and delivery complicated by meconium in amniotic fluid; O99.89 Other specified diseases and conditions complicating pregnancy, childbirth and the puerperium; F31.9 Bipolar disorder, unspecified; F41.9 Anxiety disorder, unspecified; M08.90 Juvenile arthritis, unspecified, unspecified site; O70.0 First degree perineal laceration during delivery; O32.6XX0 Maternal care for compound presentation, not applicable or unspecified; O26.893 Other specified pregnancy related conditions, third trimester; O99.02 Anemia complicating childbirth; D64.9 Anemia, unspecified; Z67.11 Type A blood, Rh negative; Z88.0 Allergy status to penicillin
CPT/HCPCS: 36415; 81001; 85025; 87086; 88307; 99212

== ENCOUNTER 2022-10-21 23:54 | Emergency (ER) | payer MEDICAID ==
[2022-10-22] MEDS ORDERED: oxyCODONE/ACET 5/325 Prepack 4 PO STA (00:09)
--- NOTE | 2022-10-22 00:10 | ED Physician Documentation ---
History of Present Illness - Stated complaint Stated Complaint: RT EAT PX - Chief complaint Chief Complaint: General - History obtained from History obtained from: Patient - Additonal information Additional information: 26yF presents with R lower dental pain X 1 week, Gradual onset, constant, progressive, radiating to the right ear. Denies fever, throat pain, difficulty swallowing Or change in voice quality. Review of Systems Throat: reports: Dental pain / toothache PD PAST MEDICAL HISTORY - Past Medical History Past Medical History: Yes Cardiovascular: None Respiratory: None Endocrine/Autoimmune: None GI: None BOTTLE BLOWER: None : None HEENT: None Psych: Bipolar disorder Musculoskeletal: None Derm: None - Past Surgical History Past Surgical History: No - Present Medications Home Medications: Ambulatory Orders Medication Instructions Recorded Confirmed Pnv No.95/Ferrous Fum/Folic AC 1 tab PO DAILY 08/24/17 09/16/17 [ Tablet] Valacyclovir HCl [Valacyclovir] 500 mg PO BID 09/17/17 09/17/17 Clindamycin [Cleocin] 450 mg PO Q8H #20 cap 10/22/22 Oxycodone HCl/Acetaminophen 1 each PO Q4H PRN #10 tablet 10/22/22 [Percocet 10-325 mg Tablet] - Allergies Allergies/Adverse Reactions: Allergies Allergy/AdvReac Type Severity Reaction Status Date / Time Penicillins Allergy Severe Anaphylaxis Verified 04/01/16 20:39 cetirizine HCl * Allergy Intermediate Respiratory Verified 04/01/16 20:39 [From Zyrtec] codeine Allergy Hives Verified 09/04/17 00:48 lamotrigine [From Lamictal] Allergy Rash Verified 04/01/16 20:39 loratadine [From Claritin] Allergy Respiratory Verified 04/01/16 20:39 Sulfa (Sulfonamide Allergy Hives Verified 04/01/16 20:39 Antibiotics) - Social History Does the pt smoke?: Yes Smoking Status: Current every day smoker Does the pt drink ETOH?: Yes Does the pt have substance abuse?: No - Immunizations Immunizations are current?: Yes - POLST Patient has POLST: No PD ED PE NORMAL - Vitals Vital signs reviewed: Yes - General General: Alert and oriented X 3, No acute distress - HEENT HEENT: Atraumatic, PERRL, EOMI, Pharynx benign, Other (R TM occluded by cerumen. normal ext auditory canal. R lower back molars with erosion at lateral gumline and significant caries. minimal surrounding swelling. normal voice quality. no submental induration) - Neck Neck: Supple, no meningeal sign Results - Vitals Vitals: Vital Signs - 24 hr 10/22/22 00:04 Temperature 36.8 C Heart Rate 93 Respiratory 16 Rate Blood Pressure 120/52 L O2 Saturation 95 Oxygen O2 Source Room air PD Medical Decision Making - ED course ED course: 26yF p/w pain from dental caries. antibiotics and pain meds sent to pharmacy. return precautions given. plan to f/u with emergency dental. Departure - Departure Disposition: Home, Self Care Clinical Impression: Infected dental caries Condition: Good Instructions: ED Cavity Dental Follow-Up: Lorenzo Riley DDS [Provider Admit Priv/Credential] - Prescriptions: Clindamycin [Cleocin] 450 mg PO Q8H #20 cap Oxycodone HCl/Acetaminophen [Percocet 10-325 mg Tablet] 1 each PO Q4H PRN #10 tablet PRN Reason: Pain Comments: You were seen in the emergency department for infected cavity. Please take your antibiotics as prescribed. Prescriptions for pain meds and antibiotics were sent to [facility] electronically. Return to the emergency department for new or worsening symptoms or other concerns.
[2022-10-22 00:17] VITALS: BP 124/62
== END 2022-10-22 00:15 | disposition home or self-care (01) ==
LOC: ED 23:54
DX: K02.9 Dental caries, unspecified (principal); F17.200 Nicotine dependence, unspecified, uncomplicated
CPT/HCPCS: 99282; 99283

== ENCOUNTER 2023-01-09 23:57 | Outpatient (CLI) | payer MEDICAID | END 2023-01-09 23:59 | disposition critical access hospital (66) | LOC: EMS 23:57 | DX: R07.1 Chest pain on breathing (principal); R07.89 Other chest pain | CPT/HCPCS: A0425; A0429; A0999 ==

== ENCOUNTER 2023-04-04 18:37 | Emergency (ER) | payer MEDICAID ==
[2023-04-04 18:59] VITALS: O2SAT 100
[2023-04-04 19:23] LABS: BASOPHILS # (AUTO) 0.1 10^3/uL (0.0-0.1); BASOPHILS % (AUTO) 1.2 %; EOSINOPHILS # (AUTO) 0.1 10^3/uL (0.0-0.7); EOSINOPHILS % (AUTO) 3.1 %; HCT - HEMATOCRIT 42.1 % (37.0-47.0); LYMPHOCYTES # (AUTO) 1.6 10^3/uL (1.5-3.5); LYMPHOCYTES % (AUTO) 37.5 %; MEAN CORPUSCULAR HEMOGLOBIN 30.4 pg (27.0-31.0); MEAN CORPUSCULAR HGB CONC 33.3 g/dL (32.0-36.0); MEAN CORPUSCULAR VOLUME 91.3 fL (81.0-99.0); MEAN PLATELET VOLUME 9.6 fL (7.9-10.8); MONOCYTES # (AUTO) 0.4 10^3/uL (0.0-1.0); MONOCYTES % (AUTO) 10.3 %; NEUTROPHILS % (AUTO) 47.7 %; PLT - PLATELET COUNT 255 10^3/uL (130-450); RED BLOOD COUNT 4.61 10^6/uL (4.20-5.40); RED CELL DISTRIBUTION WIDTH 12.6 % (12.0-15.0); WHITE BLOOD COUNT 4.2 x10^3/uL (4.8-10.8)
--- NOTE | 2023-04-04 19:56 | ED Physician Documentation ---
PD HPI FEMALE - Stated complaint Stated Complaint: /CRAMPING - Chief complaint Chief Complaint: Abd Pain - History obtained from History obtained from: Patient - Additional information Additional information: The patient comes to the emergency department chief complaint of vaginal bleeding and lower abdominal/pelvic cramping that has been going on for approximately the last 10 days since the patient had a colposcopy performed in the women's clinic here at would be. She states that she was having a little bit of spotting prior to the colposcopy, but states that since then, she has noticed a steady amount of bleeding with red blood, to the point where she is using a new pad every 2 or 3 hours. The patient states that her last menstrual period was at the very beginning of February and that she has a period every 30 to 45 days. She has a hormone eluding IUD and has not had any removal of that or a new one placed recently. No other hormonal control recently. The patient states that she does not feel the same as when she is on her period and is concerned that something else is wrong. She does note that today, the bleeding is a little less heavy than it was in prior days. She states she is scheduled to have a cervical surgery on the . She states that she had 1 biopsy and a cervical scraping done at the time of her colposcopy. No fevers or chills. No urinary symptoms. No GI symptoms. No other complaints at this time. PD PAST MEDICAL HISTORY - Past Medical History Past Medical History: Yes Cardiovascular: None Respiratory: None Neuro: None Endocrine/Autoimmune: None GI: None INORGANIC CHEMICAL TECHNICIAN: Other : None HEENT: None Psych: Anxiety, Bipolar disorder Musculoskeletal: None Derm: Other - Past Surgical History Past Surgical History: No /INORGANIC CHEMICAL TECHNICIAN: Other - Present Medications Home Medications: Ambulatory Orders Medication Instructions Recorded Confirmed No Known Home Medications 04/04/23 04/04/23 - Allergies Allergies/Adverse Reactions: Allergies Allergy/AdvReac Type Severity Reaction Status Date / Time Penicillins Allergy Severe Anaphylaxis Verified 04/04/23 18:45 cetirizine HCl * Allergy Intermediate Respiratory Verified 04/04/23 18:45 [From Zyrtec] codeine Allergy Hives Verified 04/04/23 18:45 lamotrigine [From Lamictal] Allergy Rash Verified 04/04/23 18:45 loratadine [From Claritin] Allergy Respiratory Verified 04/04/23 18:45 Sulfa (Sulfonamide Allergy Hives Verified 04/04/23 18:45 Antibiotics) - Social History Does the pt smoke?: Yes Smoking Status: Current every day smoker Does the pt drink ETOH?: No Does the pt have substance abuse?: No - Immunizations Immunizations are current?: No Immunizations: No immun - POLST Patient has POLST: No PD ED PE NORMAL - Vitals Vital signs reviewed: Yes - General General: Alert and oriented X 3, No acute distress, Well developed/nourished - HEENT HEENT: Atraumatic, PERRL, EOMI, Moist mucous membranes - Neck Neck: Supple, no meningeal sign - Cardiac Cardiac: RRR, No murmur - Respiratory Respiratory: No respiratory distress, Clear bilaterally - Abdomen Abdomen: Soft, Non tender, Non distended - Female Female : Shoeshiner present, Other (Normal female genitalia. No blood per vaginal introitus. Moderate amount of brownish-maroon discharge mixed with mucus in the patient's vaginal canal. No active bleeding from cervix. Trace bright red blood. Healing lesions noted on cervix.) - Derm Derm: Normal color, Warm and dry, No rash - Extremities Extremities: No deformity - Neuro Neuro: Alert and oriented X 3 - Psych Psych: Normal mood, Normal affect Results - Vitals Vitals: Vital Signs - 24 hr 04/04/23 04/04/23 04/04/23 18:46 18:52 20:52 Temperature 37 C 37 C 36.8 C Heart Rate 80 80 80 Respiratory 16 16 16 Rate Blood Pressure 122/68 122/68 124/62 O2 Saturation 100 100 100 Oxygen O2 Source Room air - Labs Labs: Laboratory Tests 04/04/23 19:17 WBC 4.2 L RBC 4.61 Hgb 14.0 Hct 42.1 MCV 91.3 MCH 30.4 MCHC 33.3 RDW 12.6 Plt Count 255 MPV 9.6 Neut # (Auto) 2.0 Lymph # (Auto) 1.6 [place] # (Auto) 0.4 Eos # (Auto) 0.1 Baso # (Auto) 0.1 Absolute Nucleated RBC 0.00 Nucleated RBC % 0.0 - Rads (name of study) Ultrasound pelvis Relevant Findings:: Final report received, See rad report (Unremarkable) PD Medical Decision Making - ED course Complexity details: reviewed results, re-evaluated patient, considered differential, d/w patient ED course: The patient's work-up was unremarkable, including labs and an ultrasound of the pelvis. I discussed with the patient that I do not know why she is having ongoing bloody discharge, but that I do not find evidence of an arterial bleed or of a heavy bleed. The patient's H&H are nonconcerning and at this point, I feel she is stable for discharge home to follow-up with gynecology. I have advised her to call them first thing in the morning to determine whether she should be seen sooner or continue her plans to be seen for her cervical surgery on Apr 15. Departure - Departure Disposition: Home, Self Care Clinical Impression: Dysfunctional uterine bleeding Condition: Stable Instructions: ED Bleed Irregular Vaginal Comments: Your blood work looks great, as does your ultrasound. Your pelvic exam shows a moderate amount of brownish-red discharge which appears to be combination of blood, mucus, and normal vaginal secretions. There is no obvious active bleeding coming from the cervix or its os, which is the opening from the uterus. No pulsating bleeding is noted. The areas that were scraped and biopsied are visible and appear to be healing as expected. At this point in time, it is not entirely clear why you have had the bleeding. The best plan for now would be to give the [facility] a call in the morning let them know what has been going on and see if they would like to see you sooner than your April 15 appointment date. There is no role for emergent intervention tonight. It is probably most advisable to use pads rather than tampons for now, since you are biopsy and scraping sites are still healing. Forms: PCP List Discharge Date/Time: 04/04/23 21:29
--- NOTE | 2023-04-04 21:29 | Ultrasound Report ---
PROCEDURE: Pelvic w/Transvag+Doppler Ltd INDICATIONS: vaginal bleeding and cramping after scope TECHNIQUE: Real-time scanning was performed of the pelvic organs, with image documentation. Additional endovagi nal scanning was necessary due to incomplete visualization of the adnexal and endometrial structures by transabdominal scanning. Doppler interrogation was performed of the ovaries bilaterally. COMPARISON: 04/01/2016. FINDINGS: Uterus: Uterus is retroverted and normal in size at 7.6 x 3.7 x 4.7 cm. The myometrium is homogeneo us. The endometrium measures up to 4.6 mm in combined thickness. Intrauterine device is noted in it s normal central endometrial location. No endometrial mass or fluid. Ovaries: The right ovary measures 2.7 x 2 x 2 cm, with a calculated ovarian volume of 5.8 cc. The l eft ovary measures 2.8 x 1.6 x 2.8 cm, with a calculated ovarian volume of 6.7 cc. Appropriate blood flow to the ovaries with Doppler interrogation. Less than 12 follicles can be seen in each ovary. No adnexal masses are seen. No cystic lesions measuring greater than 3 cm. Other: No pathologic free abdominal or pelvic fluid. IMPRESSION: 1. Intrauterine device is noted in its normal central endometrial location. No endometrial mass or fl uid. No discrete uterine fibroids. 2. Normal-appearing bilateral ovaries. No pelvic free fluid. Reviewed by: Bala Faulkner MD on 04/04/2023 9:27 PM PST Approved by: Bala Faulkner MD on 04/04/2023 9:27 PM PST Station ID: [id number]
[2023-04-04 21:35] VITALS: BP 124/62
== END 2023-04-04 21:29 | disposition home or self-care (01) ==
LOC: ED 18:37
DX: N93.8 Other specified abnormal uterine and vaginal bleeding (principal); F17.200 Nicotine dependence, unspecified, uncomplicated
CPT/HCPCS: 36415; 85025; 93976; 99283; 99284

== ENCOUNTER 2023-05-16 04:22 | Emergency (ER) | payer MEDICAID ==
[2023-05-16] MEDS ORDERED: KETOROLAC 15 MG/ML VIAL IVP STA (04:47)
[2023-05-16] MEDS ORDERED: ACETAMINOPHEN 1,000 MG/100 ML 1,000 MG/100 ML BAG IV ONE (04:47)
[2023-05-16] MEDS ORDERED: LIDOCAINE PATCH 4% TOP STA (04:47)
[2023-05-16] MEDS ORDERED: DEXAMETHASONE 10 MG/ML VIAL IVP STA (04:47)
--- NOTE | 2023-05-16 04:47 | ED Physician Documentation ---
PD HPI BACK PAIN - Stated complaint Stated Complaint: BACK PX - Chief complaint Chief Complaint: Back Pain - History obtained from History obtained from: Patient - Additional information Additional information: Patient presents from work by private vehicle for right-sided lumbar back pain. 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 For the last week she has had worsening lumbar back pain that is not relieved with Tylenol and Motrin. She states that every time she lays down she "locks up" and cannot get any relief. After work today she could not take it anymore and decided to present to the ER for evaluation. She denies bowel or bladder incontinence, denies saddle anesthesia, denies difficulty walking. Review of Systems Constitutional: denies: Fever, Chills GI: denies: Abdominal Pain, Nausea, Vomiting Musculoskeletal: reports: Back pain. 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 : None HEENT: Chronic vision loss Psych: Anxiety, Bipolar disorder, Panic attacks, Post traumatic stress disorder Musculoskeletal: Chronic back pain Derm: Psoriasis, Other Other Past Medical History: cervical cancer - Past Surgical History Past Surgical History: No /WASTE CHOPPER:  - Present Medications Home Medications: Ambulatory Orders Medication Instructions Recorded Confirmed Ibuprofen [Motrin] 1 tablet PO Q8H PRN 05/12/23 05/16/23 methocarbamoL [Robaxin] 500 mg PO Q6H #30 tablet 05/16/23 methylPREDNISolone [Medrol Dose 1 each PO .PACKAGEINSTRUCTIONS 6 05/16/23 Pack] Days #1 each - Allergies Allergies/Adverse Reactions: Allergies Allergy/AdvReac Type Severity Reaction Status Date / Time Penicillins Allergy Severe Anaphylaxis Verified 05/16/23 04:36 cetirizine HCl * Allergy Intermediate Respiratory Verified 05/16/23 04:36 [From Zyrtec] codeine Allergy Hives Verified 05/16/23 04:36 loratadine [From Claritin] Allergy Respiratory Verified 05/16/23 04:36 Sulfa (Sulfonamide Allergy Hives Verified 05/16/23 04:36 Antibiotics) - Social History Does the pt smoke?: Yes Smoking Status: Current every day smoker Does the pt drink ETOH?: No Does the pt have substance abuse?: No - Immunizations Immunizations are current?: No Immunizations: No immun - POLST Patient has POLST: No PD ED PE NORMAL - Vitals Vital signs reviewed: Yes - General General: Alert and oriented X 3, Other (In pain) - Cardiac Cardiac: RRR - Respiratory Respiratory: No respiratory distress, Clear bilaterally - Abdomen Abdomen: Soft, Non tender, Non distended - Back Back: No CVA TTP, No spinal TTP, Other (Right-sided lower lumbar paraspinal muscle tenderness to palpation) - Derm Derm: Normal color, Warm and dry, No rash - Extremities Extremities: No deformity, No tenderness to palpate, Normal ROM s pain, No edema - Neuro Neuro: Alert and oriented X 3, windscreen fitter 2-12 intact, No motor deficit, Normal speech Results - Vitals Vitals: Vital Signs - 24 hr 05/16/23 05/16/23 04:28 06:00 Temperature 37.1 C Heart Rate 88 81 Respiratory 18 16 Rate Blood Pressure 108/60 120/75 O2 Saturation 100 99 Oxygen O2 Source Room air PD Medical Decision Making - ED course Complexity details: reviewed old records, reviewed results, re-evaluated patient, considered differential, d/w patient ED course: Right-sided paraspinal lumbar pain for 1 week, worse after lifting heavy boxes. There is no midline tenderness, no neurologic signs or symptoms. Will give patient nonnarcotic analgesia. Patient drove herself here today so we will defer muscle relaxers administered in the emergency department. Patient reported to nursing staff that she did not receive any relief from the lidocaine patch, Toradol, IV Tylenol administered. Will order analgesic dose of ketamine and will order x-rays of lumbar back. Patient informed nursing staff that her back pain has been present for years, starting with her pregnancies many years ago. At this time no indication for narcotic medications, especially since this appears to be an exacerbation of patient's chronic back pain. X-ray imaging negative for acute process. Patient is now sitting more comfort ably in ED bed, watching videos on her phone. Patient counseled of results of x-ray imaging. Will send prescription for muscle relaxers and steroids to pharmacy. Patient counseled to alternate Tylenol and Motrin for pain, apply gentle stretching exercises, and to ensure that she follows up with physical therapy per her referral. Departure - Departure Disposition: 01 Home, Self Care Clinical Impression: Back pain Qualifiers: Back pain location: low back pain Chronicity: chronic Back pain laterality: right Sciatica presence: without sciatica Qualified Code(s): M54.50 - Low back pain, unspecified Condition: Stable Instructions: ED Back Care Tips, ED Spasm Back No Trauma Prescriptions: methylPREDNISolone [Medrol Dose Pack] 1 each PO .PACKAGEINSTRUCTIONS 6 Days #1 each methocarbamoL [Robaxin] 500 mg PO Q6H #30 tablet
[2023-05-16] MEDS ORDERED: KETAMINE 500 MG/10 ML VIAL IVP STA (05:51)
[2023-05-16 06:26] VITALS: O2SAT 99
[2023-05-16 06:55] VITALS: BP 122/62
--- NOTE | 2023-05-16 10:14 | XRAY Report ---
PROCEDURE: Lumbar Spine 2 View INDICATIONS: LUMBAR BACK PAIN TECHNIQUE: 2 views of the lumbar spine were acquired. COMPARISON: None. FINDINGS: Bones: 5 [id number] vertebrae are present. There is normal bony alignment. No vertebral body compression fractures. No suspicious bony lesions. The disc heights are well preserved. Soft tissues: Overlying bowel gas pattern is normal. No suspicious soft tissue calcifications. An IUD is seen at the expected location. IMPRESSION: Plain film study within normal limits. Note: No significant discrepancy from the preliminary report. Reviewed by: Trino Martin MD on 05/16/2023 9:12 AM [facility] Approved by: Trino Martin MD on 05/16/2023 9:12 AM [facility] Station ID: [id number]
== END 2023-05-16 06:51 | disposition home or self-care (01) ==
LOC: ED 04:22
DX: M54.50 Low back pain, unspecified (principal); G89.29 Other chronic pain; F17.200 Nicotine dependence, unspecified, uncomplicated
CPT/HCPCS: 72100; 96374; 96375; 99283; A9270; J0131

== ENCOUNTER 2023-05-20 06:30 | Day surgery (SDC) | payer MEDICAID ==
[2023-05-20] MEDS ORDERED: LACTATED RINGERS 1,000 ML IV ONE ×3 (06:39→09:54)
[2023-05-20 06:54] LABS: HCG UR QUAL NEGATIVE
[2023-05-20] MEDS ORDERED: MIDAZOLAM 2 MG/2 ML VIAL ONE (06:59)
[2023-05-20] MEDS ORDERED: ROCURONIUM 50 MG/5 ML VIAL ONE (06:59)
[2023-05-20] MEDS ORDERED: PROPOFOL 200 MG/20 ML VIAL IVP ONE (06:59)
[2023-05-20] MEDS ORDERED: fentaNYL 100 MCG/2 ML VIAL ONE (06:59)
[2023-05-20] MEDS ORDERED: MORPHINE 2 MG/ML CARPUJECT IVP PRN (07:20)
[2023-05-20] MEDS ORDERED: ONDANSETRON 4 MG/2 ML VIAL IVP PRN (07:20)
[2023-05-20] MEDS ORDERED: ATROPINE ABBOJECT 1 MG/10 ML SYRINGE IVP PRN (07:20)
[2023-05-20] MEDS ORDERED: fentaNYL 100 MCG/2 ML VIAL IVP PRN (07:20)
[2023-05-20] MEDS ORDERED: NALOXONE 0.4 MG/ML VIAL IVP PRN (07:20)
--- NOTE | 2023-05-20 07:20 | ANESTHESIA ---
Pre-Anesthesia VS, & Labs - Diagnosis Desires sterilization - Procedure lap. bilateral salpingectomy Vital Signs: Temp Pulse Resp BP Pulse Ox O2 Flow Rate 36.4 C L 65 15 118/78 100 05/20/23 06:43 05/20/23 06:43 05/20/23 06:43 05/20/23 06:43 05/20/23 06:43 Height: 5 ft 2 in Weight (kg): 48.8 kg Body Mass Index: 19.6 BMI Classification: Normal - NPO >8 hours - Is Patient ?: No - Lab Results Lab results reviewed: Yes Home Medications and Allergies Home Medications: Ambulatory Orders Ibuprofen [Motrin] 1 tablet PO Q8H PRN 05/12/23 Ibuprofen [Motrin] 1 tablet PO Q8H PRN 05/12/23 Allergies/Adverse Reactions: Allergies Allergy/AdvReac Type Severity Reaction Status Date / Time Penicillins Allergy Severe Anaphylaxis Verified 05/16/23 04:36 cetirizine HCl * Allergy Intermediate Respiratory Verified 05/16/23 04:36 [From Zyrtec] codeine Allergy Hives Verified 05/16/23 04:36 loratadine [From Claritin] Allergy Respiratory Verified 05/16/23 04:36 Sulfa (Sulfonamide Allergy Hives Verified 05/16/23 04:36 Antibiotics) Anes History & Medical History - Anesthetic History Anesthesia Complications: reports: No previous complications - Medical History Cardiovascular: reports: Murmur Pulmonary: reports: None Gastrointestinal: reports: None Urinary: reports: None Neuro: reports: None Musculoskeletal: reports: Chronic back pain Endocrine/Autoimmune: reports: None Blood Disorders: reports: None Skin: reports: Psoriasis, Other Smoking Status: Current every day smoker History of Cancer?: No - Surgical History Gynecologic: Other Past Surgical History: dental Exam General: Alert, Oriented x3, Cooperative, No acute distress Dental: Poor dentition Mouth Openin Fingerbreadth Neck Mobility: Normal Mallampati classification: II Thyromental Distance: 4-6 cm Mental/Cognitive Status: Alert/Oriented X3, Normal for patient Plan Anesthesia Type: General Consent for Procedure(s) Verified and Reviewed: Yes Code Status: Attempt Resuscitation ASA classification: 2-Mild systemic disease Is this case an emergency?: No
[2023-05-20 07:25] LABS: BASOPHILS % (AUTO) 0.7 %; EOSINOPHILS # (AUTO) 0.1 10^3/uL (0.0-0.7); HCT - HEMATOCRIT 38.2 % (37.0-47.0); HGB - HEMOGLOBIN 13.1 g/dL (12.0-16.0); LYMPHOCYTES # (AUTO) 2.9 10^3/uL (1.5-3.5); LYMPHOCYTES % (AUTO) 48.6 %; MEAN CORPUSCULAR HEMOGLOBIN 29.6 pg (27.0-31.0); MEAN CORPUSCULAR HGB CONC 34.3 g/dL (32.0-36.0); MEAN CORPUSCULAR VOLUME 86.4 fL (81.0-99.0); MEAN PLATELET VOLUME 9.6 fL (7.9-10.8); MONOCYTES # (AUTO) 0.4 10^3/uL (0.0-1.0); MONOCYTES % (AUTO) 7.3 %; NEUTROPHILS # (AUTO) 2.5 10^3/uL (1.5-6.6); NEUTROPHILS % (AUTO) 42.1 %; PLT - PLATELET COUNT 259 10^3/uL (130-450); RED BLOOD COUNT 4.42 10^6/uL (4.20-5.40); RED CELL DISTRIBUTION WIDTH 11.9 % (12.0-15.0); WHITE BLOOD COUNT 5.9 x10^3/uL (4.8-10.8)
--- NOTE | 2023-05-20 07:29 | HISTORY & PHYSICAL EXAMINATION ---
HPI - History of Present Illness HPI Comment/Other: HPI: Patient is a 30-year-old presenting for LEEP for ASAEL-2/3 as well as bilateral laparoscopic salpingectomy. Other than new onset low back muscular strain, no new findings. All other symptoms reviewed and were negative except per HPI. PMH Multiple miscarriages Depression anxiety Vitiligo Genital herpes Nicotine dependence PSH No previous surgeries SH Current everyday smoker, counseled to quit Family History Mother: Gallbladder disease, osteoarthritis Father: Osteoarthritis Maternal grandfather: Heart disease, hypertension Allergies Penicillin: Anaphylaxis Sulfa: Rash Wellbutrin: Nausea Coding: Angry Medications Mirena Ibuprofen Physical exam: Physical exam: Constitutional: alert, oriented, no acute distress Cardiovascular: Regular rate and rhythm. No murmurs, rubs, gallops. Respiratory: No respiratory distress. Clear to auscultation bilaterally. Abdomen: Soft, non-tender. Back: No reproducible tenderness. Extremities: No swelling or tenderness. No cords. Distal pulses intact. Psych: affect and mood appropriate, normal interaction, good eye contact. Plan 1. Desires sterility: She desires a tubal ligation. We discussed the risks, alternatives, benefits to this. We discussed long-acting control such as IUDs and implants. We had discussion about partner vasectomy and the pros and cons to this including a smaller surgery, and easier recovery. We discussed the general risk of surgery including infection, bleeding, damage to other organs, needing a larger incision. Specific to tubal ligation, we discussed the risk of regret, and discussed that regret is greater in those under 30, without children, and not in stable relationships. Patient says she is confident in her decision to not have any more children. We also discussed the risk of failure, and that less than 1/100 tubal ligation fail, but if it did, she would be at increased risk of ectopic . Patient desires to proceed with bilateral tubal ligation. 2. Cervical dysplasia LEEP. Patient was counseled on risk, benefits, alternatives of the procedure and like to proceed with excision. 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: Other : positive: None HEENT: positive: Chronic vision loss Psych: positive: Anxiety, Bipolar disorder, Panic attacks, Post traumatic stress disorder Musculoskeletal: positive: Chronic back pain Derm: positive: Psoriasis, Other MRSA Hx?: No - Past Surgical History /CATERERS HELPER: Other past surgical history: dental Social & Family Hx - Social History Does the pt smoke?: Yes Smoking Status: Current every day smoker Does the pt drink ETOH?: No Does the pt have substance abuse?: No - POLST Patient has POLST: No Meds/Allgy - Home Medications Home Medications: Ambulatory Orders Medication Instructions Recorded Confirmed Ibuprofen [Motrin] 1 tablet PO Q8H PRN 05/12/23 05/20/23 methocarbamoL [Robaxin] 500 mg PO Q6H #30 tablet 05/16/23 05/20/23 methylPREDNISolone [Medrol Dose 1 each PO .PACKAGEINSTRUCTIONS 6 05/16/23 05/20/23 Pack] Days #1 each - Allergies Allergies/Adverse Reactions: Allergies Allergy/AdvReac Type Severity Reaction Status Date / Time Penicillins Allergy Severe Anaphylaxis Verified 05/20/23 07:18 cetirizine HCl * Allergy Intermediate Respiratory Verified 05/20/23 07:18 [From Zyrtec] codeine Allergy Hives Verified 05/20/23 07:18 loratadine [From Claritin] Allergy Respiratory Verified 05/20/23 07:18 Sulfa (Sulfonamide Allergy Hives Verified 05/20/23 07:18 Antibiotics) Exam - Vital Signs Vital Signs: Vital Signs x48h Temp Pulse Resp BP Pulse Ox 05/20/23 06:43 97.5 F L 65 15 118/78 100 Results - Lab Results Other Lab Results: Lab Results x24hrs 05/20/23 Range/Units 06:35 Urine HCG, Qual NEGATIVE
[2023-05-20] MEDS ORDERED: KETOROLAC 30 MG/ML VIAL ONE (07:46)
[2023-05-20] MEDS ORDERED: DEXAMETHASONE 4 MG/ML VIAL ONE (07:46)
[2023-05-20] MEDS ORDERED: ONDANSETRON 4 MG/2 ML VIAL ONE ×2 (07:46→09:40)
[2023-05-20] MEDS ORDERED: LACTATED RINGERS 1,000 ML IV SCH (08:00)
[2023-05-20] MEDS ORDERED: HYDROmorphone 1 MG/ML CARPUJECT ONE (08:12)
[2023-05-20] MEDS ORDERED: GLYCOPYRROLATE 1 MG/5 ML VIAL ONE (08:17)
[2023-05-20] MEDS ORDERED: SUGAMMADEX 200 MG/2 ML VIAL IVP ONE (08:35)
[2023-05-20] MEDS ORDERED: oxyCODONE 5 MG TABLET PO PRN (09:17)
--- NOTE | 2023-05-20 09:27 | OPERATIVE REPORT ---
Operative Report - General Procedure Date: 05/20/23 Planned Procedure: Laparoscopic bilateral salpingectomy, LEEP cervical conization Pre-Op Diagnosis: Desires sterility, cervical dysplasia Procedure Performed: Laparoscopic bilateral salpingectomy, LEEP cervical conization, IUD removal Post Op Diagnosis: Desires sterility, cervical dysplasia - Procedure Note Primary Surgeon: Mauro Danielle MD Secondary Surgeon: NITO Mccracken Anesthesia Provider: Lucina Nguyen CRNA Anesthesia Technique: General ET tube Pathology: Anterior cervical LEEP conization, bilateral fallopian tubes, endocervical curettage IV Fluids (mL): 1,600 Estimated Blood Loss (mL): 30 Urine Output (mL): 0 (Voided prior to procedure) Findings: Abnormal appearing cervix with areas of acetowhite changes and gross abnormalities. - Other Other Information/Narrative: Prior to surgery, we discussed the risks, alternatives, benefits to tubal ligation. We discussed long-acting control such as IUDs and implants. We had discussion about partner vasectomy and the pros and cons to this including a smaller surgery, and easier recovery. We discussed the general risk of surgery including infection, bleeding, damage to other organs, needing a larger incision. Specific to tubal ligation, we discussed the risk of regret, and discussed that regret is greater in those under 30, without children, and not in stable relationships. Patient says she is confident in her decision to not have any more children. We also discussed the risk of failure, and that less than 1/100 tubal ligation fail, but if it did, she would be at increased risk of ectopic . Patient desires to proceed with bilateral tubal ligation. Patient was taken to the OR and placed in the dorsal lithotomy position using Yellofin stirrups after adequate anesthesia was obtained. Patient was prepped and draped in the usual fashion. A bivalve speculum was used to visualize the cervix and into adequately placed the uterine manipulator, the IUD was removed with gentle traction. The uterine manipulator was then placed. Attention was then turned to the sterile portion of the abdominal procedure and 2 mL of local anesthesia was used below the umbilicus. An 11 blade scalpel was used to incise the skin. Direct visual entry was used to place the infraumbilical trocar. Upon entering the peritoneal cavity, low flow was used to ensure appropriate positioning. Upon visualization of the abdominal cavity, high flow was then initiated. 2 additional trocars was placed under visualization in a similar fashion in the right and left lower quadrants. After visualization of the left fallopian tube, it was grasped with an atraumatic grasper. The mesosalpinx was cauterized and cut with a Ligasure device. Attention was then turned to the right fallopian tube which was then removed in a similar fashion. The abdomen was reviewed for hemostasis, and a healthy-appearing liver was noted. The trocars were then removed, and abdomen was evacuated of gas. The trocar sites were then closed with a 4-0 Monocryl in a sub-cuticular fashion and covered with Dermabond. Attention was then turned to the cervical portion the procedure and a coated speculum attached to suction was placed in the vagina with good visualization of the cervix. Acetic acid was placed on the cervix and allowed to highlight areas of acetowhite change. She had multiple areas of abnormal cells along around 12:00 and 5-8 o'clock. A LEEP conization was then performed and the anterior cervix was sent to pathology tagged at 12:00. An ECC was also performed. Using combination of electrocautery and Monsel solution, hemostasis was achieved. Counts were correct at the end of the case. Patient was taken to the PACU in stable condition. I appreciate the assistance of NITO Mccracken during this procedure, and the assistance in retraction, visualization, dissection, and overall a ssistance during the case were instrumental to the patient's wellbeing.
[2023-05-20] MEDS: HYDROmorphone 0.5 MG/0.5 ML SYRINGE IVP PRN ×2 (09:35→09:48)
[2023-05-20] MEDS ORDERED: HYDROmorphone 0.5 MG/0.5 ML SYRINGE ONE ×2 (09:38→09:46)
[2023-05-20] MEDS ORDERED: ACETAMINOPHEN 1,000 MG/100 ML 1,000 MG/100 ML BAG IV ONE ×2 (09:39→09:51)
[2023-05-20] MEDS ORDERED: SCOPOLAMINE PATCH TOP ONE (10:15)
[2023-05-20] MEDS ORDERED: oxyCODONE 5 MG TABLET ONE (10:26)
[2023-05-20 10:27] VITALS: BP 126/78; O2SAT 97
[2023-05-20] MEDS ORDERED: SCOPOLAMINE PATCH TOP SCH (11:00)
--- NOTE | 2023-05-20 11:31 | ANESTHESIA POST OP EVALUATION ---
Anesthesia Post Eval - Post Anesthesia Eval Vitals: Last Vital Signs Temp 36.2 C L 05/20/23 10:29 Pulse 75 05/20/23 10:29 Resp 16 05/20/23 10:29 BP 126/78 05/20/23 10:29 Pulse Ox 97 05/20/23 10:29 O2 Flow Rate CV Function Including HR & BP: Stable Pain Control: Satisfactory Nausea & Vomiting: Negative Mental Status: Baseline Respiratory Status: Airway Patent Hydration Status: Satisfactory Anesthesia Complications: None
== END 2023-05-20 06:31 | disposition home or self-care (01) ==
LOC: SDS 06:30
PROVIDERS: ATTEND Obstetrics & Gynecology
PROC: 0UT74ZZ Resection of Bilateral Fallopian Tubes, Percutaneous Endoscopic Approach (ICD-10-PCS; 2023-05-20)
PROC: 0UBC7ZX Excision of Cervix, Via Natural or Artificial Opening, Diagnostic (ICD-10-PCS; principal; 2023-05-20 07:30)
DX: N87.0 Mild cervical dysplasia (principal); Z30.2 Encounter for sterilization; F17.200 Nicotine dependence, unspecified, uncomplicated; F41.9 Anxiety disorder, unspecified
CPT/HCPCS: 36415; 57522; 58301; 58661; 81025; 85025; A9270; J0131; J1170; J3490; J7120

== ENCOUNTER 2023-05-23 13:04 | Emergency (ER) | payer MEDICAID ==
[2023-05-23 13:26] VITALS: BP 121/89; O2SAT 100
[2023-05-23] MEDS ORDERED: DEXAMETHASONE 10 MG/ML VIAL PO STA (13:48)
[2023-05-23] MEDS ORDERED: CHERRY SYRUP 10 ML UDC PO ONE (13:48)
--- NOTE | 2023-05-23 13:51 | ED Physician Documentation ---
History of Present Illness - Stated complaint Stated Complaint: SOA,RASH ON ABD - Chief complaint Chief Complaint: Abd Pain - Additonal information Additional information: Patient 27-year-old female presenting to the emergency department with chief complaint rash and allergic reaction. Underwent LEEP procedure 2 days ago. Since been taking oxycodone at home. Yesterday began to develop a rash around her abdomen which has since become d iffuse. She reports extreme pruritus. Reports that she does feel as though she gets short of breath with exertion but denies any wheezing or lightheadedness. Reports an intolerance to Benadryl and other antihistamines stating that she had a severe allergy to these medications in childhood. 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 HEENT: Chronic vision loss Psych: Anxiety, Bipolar disorder, Panic attacks, Post traumatic stress disorder Musculoskeletal: Chronic back pain Derm: Psoriasis, Other - Past Surgical History Past Surgical History: 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: Tubal ligation, LEEP (Cervical surgery) - Present Medications Home Medications: Ambulatory Orders Medication Instructions Recorded Confirmed Ibuprofen [Motrin] 1 tablet PO Q8H PRN 05/12/23 05/20/23 methocarbamoL [Robaxin] 500 mg PO Q6H #30 tablet 05/16/23 05/20/23 methylPREDNISolone [Medrol Dose 1 each PO .PACKAGEINSTRUCTIONS 6 05/16/23 05/20/23 Pack] Days #1 each oxyCODONE [Roxicodone] 5 mg PO Q4H PRN #6 tablet 05/20/23 HYDROcod/ACETAM 5/325 [[place] 5/325] 1 - 2 ea PO Q6H PRN #14 tablet 05/23/23 - Allergies Allergies/Adverse Reactions: Allergies Allergy/AdvReac Type Severity Reaction Status Date / Time Penicillins Allergy Severe Anaphylaxis Verified 05/20/23 07:18 cetirizine HCl * Allergy Intermediate Respiratory Verified 05/20/23 07:18 [From Zyrtec] codeine Allergy Hives Verified 05/20/23 07:18 loratadine [From Claritin] Allergy Respiratory Verified 05/20/23 07:18 oxycodone [From Roxicodone] Allergy Hives Verified 05/23/23 14:01 Sulfa (Sulfonamide Allergy Hives Verified 05/20/23 07:18 Antibiotics) - Social History Does the pt smoke?: Yes Smoking Status: Current every day smoker Does the pt drink ETOH?: No Does the pt have substance abuse?: No - Immunizations Immunizations are current?: No Immunizations: No immun - POLST Patient has POLST: No PD ED PE NORMAL - Vitals Vital signs reviewed: Yes - General General: Alert and oriented X 3, No acute distress - HEENT HEENT: Atraumatic - Neck Neck: Supple, no meningeal sign - Cardiac Cardiac: RRR - Respiratory Respiratory: No respiratory distress - Abdomen Abdomen: Normal bowel sounds, Other (Surgical site identified, clean, dry, no indications infection.) - Derm Derm: Other (Diffuse urticarial rash noted prominently along the abdomen, anterior chest wall, back.) Results - Vitals Vitals: Vital Signs - 24 hr 05/23/23 13:14 Temperature 36.5 C Heart Rate 80 Respiratory 20 Rate Blood Pressure 121/89 H O2 Saturation 100 Oxygen O2 Source Room air PD Medical Decision Making - ED course Complexity details: reviewed results, d/w patient ED course: Patient 27-year-old female presenting to the emergency department with rash. Past medical significant for LEEP procedure performed 2 days ago. Patient reports was otherwise doing well until she began to develop a diffuse pruritic rash around her abdomen. Reports a history of allergic intolerance to antihistamines. No indications anaphylaxis here in the emergency department although patient does have diffuse urticaria. Notably she is afebrile with no skin sloughing and there is sparing of her palms. Given a dose decadron in ED. Abdominal exam benign. No indications surgical site infection. Given patient's otherwise reassuring vital signs I do not believe there is indication for lab work or advanced imaging at this time. Discussed risks of transitioning to an alternative medication. Patient reported that she had tolerated hydrocodone well in the past. I did express concern given the potential for cross- reactivity between Roxicodone and hydrocodone however after discussing the risks and benefits of attempting a trial of hydrocodone patient verbalized that this is what she would like to do. Prescription written. Encouraged careful follow-up with [facility]. Departure - Departure Disposition: 01 Home, Self Care Clinical Impression: Allergic reaction, Other acute postprocedural pain Prescriptions: HYDROcod/ACETAM 5/325 [[place] 5/325] 1 - 2 ea PO Q6H PRN #14 tablet PRN Reason: Pain Comments: Thank you for allowing us to care for you today at [facility]. Today in the emergency department you were given a dose of Decadron for treatment of your allergic reaction. It is important that you abstain from Percocet/Oxycodone in the future. Please communicate this allergy to all healthcare professionals and during all healthcare encounters. As we discussed, I have written a prescription for a short course of Hydocodone-Acetaminophen. Please be aware that there is increased risk for allergic reaction to this medication given your allergy to oxycodone. Please be extraordinarily cautious while using this medication. 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 This medication cannot be refilled from the emergency department. Please follow-up with your primary care doctor and [facility] as soon as possible concerning your ED visit. If it anytime you develop new or worsening symptoms, particularly if you develop worsening rash, wheeze, shortness of breath or lightheadedness that it is important that you return to the emergency department immediately for reevaluation. Forms: PCP List
== END 2023-05-23 14:37 | disposition home or self-care (01) ==
LOC: ED 13:04
DX: L27.1 Localized skin eruption due to drugs and medicaments taken internally (principal); T40.2X5A Adverse effect of other opioids, initial encounter; G89.18 Other acute postprocedural pain; F17.200 Nicotine dependence, unspecified, uncomplicated; Z88.5 Allergy status to narcotic agent
CPT/HCPCS: 99282; 99283; A9270

== ENCOUNTER 2023-05-28 11:18 | Emergency (ER) | payer MEDICAID ==
[2023-05-28 11:52] LABS: BASOPHILS # (AUTO) 0.1 10^3/uL (0.0-0.1); BASOPHILS % (AUTO) 0.4 %; EOSINOPHILS # (AUTO) 0.1 10^3/uL (0.0-0.7); EOSINOPHILS % (AUTO) 0.7 %; HCT - HEMATOCRIT 40.4 % (37.0-47.0); HGB - HEMOGLOBIN 14.1 g/dL (12.0-16.0); LYMPHOCYTES # (AUTO) 1.3 10^3/uL (1.5-3.5); LYMPHOCYTES % (AUTO) 9.2 %; MEAN CORPUSCULAR HEMOGLOBIN 30.1 pg (27.0-31.0); MEAN CORPUSCULAR HGB CONC 34.9 g/dL (32.0-36.0); MEAN CORPUSCULAR VOLUME 86.3 fL (81.0-99.0); MONOCYTES % (AUTO) 7.2 %; NEUTROPHILS # (AUTO) 11.3 10^3/uL (1.5-6.6); NEUTROPHILS % (AUTO) 82.1 %; PLT - PLATELET COUNT 288 10^3/uL (130-450); RED BLOOD COUNT 4.68 10^6/uL (4.20-5.40); RED CELL DISTRIBUTION WIDTH 11.9 % (12.0-15.0); WHITE BLOOD COUNT 13.7 x10^3/uL (4.8-10.8)
[2023-05-28 11:55] LABS: BILIRUBIN,URINE NEGATIVE (NEGATIVE); GLUCOSE, URINE (UA) NEGATIVE (NEGATIVE); KETONES,URINE (UA) NEGATIVE (NEGATIVE); LEUKOCYTE ESTERASE, URINE SMALL (NEGATIVE); NITRITE,URINE NEGATIVE (NEGATIVE); OCCULT BLOOD,URINE LARGE (NEGATIVE); PROTEIN,URINE TRACE mg/dL (NEGATIVE); UROBILINOGEN,URINE 1 (NORMAL) E.U./dL (NORMAL)
[2023-05-28 12:07] LABS: CLARITY,URINE SL. CLOUDY (CLEAR)
[2023-05-28 12:08] LABS: BACTERIA,URINE Few /HPF (None Seen); SQUAMOUS EPITHELIAL CELL,UR RARE Squamous (<= Few); WBC CLUMPS,URINE PRESENT
[2023-05-28 12:10] LABS: ALBUMIN 4.8 g/dL (3.2-5.5); ALBUMIN/GLOBULIN RATIO 1.7 (1.0-2.2); BILIRUBIN,TOTAL 0.8 mg/dL (0.2-1.0); CALCIUM 9.7 mg/dL (8.5-10.3); CREATININE 0.7 mg/dL (0.6-1.3); POTASSIUM 3.8 mmol/L (3.5-4.5); TOTAL PROTEIN 7.7 g/dL (6.4-8.9)
[2023-05-28] MEDS ORDERED: HYDROcod/ACETAM 5/325 MG TABLET PO STA (12:10)
[2023-05-28] MEDS ORDERED: KETOROLAC 30 MG/ML VIAL IVP STA (12:10)
--- NOTE | 2023-05-28 12:45 | XRAY Report ---
PROCEDURE: Chest 1V INDICATIONS: Sepsis TECHNIQUE: One view of the chest was acquired. COMPARISON: None. FINDINGS: Surgical changes and devices: None. Lungs and pleura: No pleural effusions or pneumothorax. Lungs are clear. Mediastinum: Mediastinal contours appear normal. Heart size is normal. Bones and chest wall: No suspicious bony lesions. Overlying soft tissues appear unremarkable. IMPRESSION: No acute cardiopulmonary process. Reviewed by: Amelia Skelton MD on 05/28/2023 12:44 PM PST Approved by: Amelia Skelton MD on 05/28/2023 12:44 PM PST Station ID: [id number]
--- NOTE | 2023-05-28 13:02 | ED Physician Documentation ---
PD HPI ABD PAIN - Stated complaint Stated Complaint: FEVER/CHILLS/SOA - Chief complaint Chief Complaint: Abd Pain - History obtained from History obtained from: Patient - Additional information Additional information: 27-year-old female presents with fever, cough, right-sided abdominal pain and bilateral flank pain. She states she has been ill since she returned home from surgery after having a LEEP and salpingectomy On 05/20/[address] Danielle. She was seen on the for a rash related to oxycodone, she states that that has not gotten better and she continues to have the rash but now has more soreness and tenderness around the right abdominal incision site as well as into her flanks bilaterally. She has not had dysuria urgency or frequency, denies diarrhea or constipation. Has had a Cough, sometimes productive, she has no shortness of breath at rest but does have shortness of breath with activity, and generalized achiness. She developed a fever yesterday, and has been taking Tyl enol without relief. She generally feels unwell.. She is requesting pain medication for her symptoms. She Has a number of allergies but states that she can tolerate hydrocodone. Review of Systems Constitutional: reports: Fever, Myalgias Eyes: reports: Reviewed and negative Ears: reports: Reviewed and negative Nose: reports: Reviewed and negative Throat: reports: Reviewed and negative Cardiac: reports: Reviewed and negative Respiratory: reports: Cough. denies: Hemoptysis, Wheezing GI: reports: Abdominal Pain. denies: Abdominal Swelling, Nausea, Vomiting, Constipation, Diarrhea : denies: Dysuria, Frequency, Hesitancy, Unable to Void, Incontinent, Hematuria Skin: reports: Reviewed and negative Musculoskeletal: reports: Back pain. 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, LEEP (Cervical surgery) - Present Medications Home Medications: Ambulatory Orders Medication Instructions Recorded Confirmed Ibuprofen [Motrin] 1 tablet PO Q8H PRN 05/12/23 05/20/23 methocarbamoL [Robaxin] 500 mg PO Q6H #30 tablet 05/16/23 05/20/23 methylPREDNISolone [Medrol Dose 1 each PO .PACKAGEINSTRUCTIONS 6 05/16/23 05/20/23 Pack] Days #1 each oxyCODONE [Roxicodone] 5 mg PO Q4H PRN #6 tablet 05/20/23 HYDROcod/ACETAM 5/325 [[place] 5/325] 1 - 2 ea PO Q6H PRN #14 tablet 05/23/23 Azithromycin [Zithromax] 0 mg PO DAILY #6 tablet 05/28/23 HYDROcod/ACETAM 5/325 [[place] 5/325] 1 - 2 tablet PO Q6H PRN #6 tablet 05/28/23 Nitrofurantoin [Macrobid] 100 mg PO BID #10 cap 05/28/23 - Allergies Allergies/Adverse Reactions: Allergies Allergy/AdvReac Type Severity Reaction Status Date / Time Penicillins Allergy Severe Anaphylaxis Verified 05/20/23 07:18 cetirizine HCl * Allergy Intermediate Respiratory Verified 05/20/23 07:18 [From Zyrtec] codeine Allergy Hives Verified 05/20/23 07:18 loratadine [From Claritin] Allergy Respiratory Verified 05/20/23 07:18 oxycodone [From Roxicodone] Allergy Hives Verified 05/23/23 14:01 Sulfa (Sulfonamide Allergy Hives Verified 05/20/23 07:18 Antibiotics) - Social History Does the pt smoke?: No Smoking Status: Never smoker Does the pt drink ETOH?: No Does the pt have substance abuse?: No - Immunizations Immunizations are current?: No Immunizations: No immun - POLST Patient has POLST: No PD ED PE NORMAL - Vitals Vital signs reviewed: Yes - General General: Alert and oriented X 3, No acute distress, Well developed/nourished - HEENT HEENT: Atraumatic, Moist mucous membranes - Neck Neck: Supple, no meningeal sign, No JVD - Cardiac Cardiac: RRR, No murmur - Respiratory Respiratory: No respiratory distress, Clear bilaterally - Abdomen Abdomen: Normal bowel sounds, Soft, Non distended, Other (There is mild tend erness centered on the right lower abdominal incision, no palpable abscess or mass, no erythema or drainage from incision site.) - Back Back: Other (Bilateral CVAT) - Neuro Neuro: Alert and oriented X 3 Eye Opening: Spontaneous Motor: Obeys Commands Verbal: Oriented GCS Score: 15 - Psych Psych: Normal mood, Normal affect Results - Vitals Vitals: Vital Signs - 24 hr 05/28/23 05/28/23 05/28/23 11:29 12:38 13:14 Temperature 37.4 C 36.7 C 36.6 C Heart Rate 110 H 94 80 Respiratory 20 18 18 Rate Blood Pressure 106/63 114/74 102/58 L O2 Saturation 99 98 98 05/28/23 14:01 Temperature 36.7 C Heart Rate 77 Respiratory 12 Rate Blood Pressure 102/58 L O2 Saturation 99 Oxygen O2 Source Room air - EKG (time done) No standard instances EKG releavant findings:: EKG personally interpreted by author of this note. Relevant findings are: Rate: Rate (enter#) (89) Rhythm: NSR [place]: Normal Intervals: Normal NC QRS: Normal Ischemia: Normal ST segments Computer interpretation: Agree with computer - Labs Labs: Laboratory Tests 05/28/23 05/28/23 05/28/23 11:47 11:47 11:47 WBC 13.7 H RBC 4.68 Hgb 14.1 Hct 40.4 MCV 86.3 MCH 30.1 MCHC 34.9 RDW 11.9 L Plt Count 288 MPV 9.0 Neut # (Auto) 11.3 H Lymph # (Auto) 1.3 L [place] # (Auto) 1.0 Eos # (Auto) 0.1 Baso # (Auto) 0.1 Absolute Nucleated RBC 0.00 Nucleated RBC % 0.0 Sodium 137 Potassium 3.8 Chloride 105 Carbon Dioxide 25 Anion Gap 7.0 BUN 9 Creatinine 0.7 Estimated GFR (MDRD) 101 Glucose 89 Lactic Acid 0.5 Calcium 9.7 Total Bilirubin 0.8 AST 10 ALT 7 L Alkaline Phosphatase 57 Total Protein 7.7 Albumin 4.8 Globulin 2.9 Albumin/Globulin Ratio 1.7 Urine Color Urine Clarity Urine pH Ur Specific [place] Urine Protein Urine Glucose (UA) Urine Ketones Urine Occult Blood Urine Nitrite Urine Bilirubin Urine Urobilinogen Ur Leukocyte Esterase Urine RBC Urine WBC Urine WBC Clumps Ur Squamous Epith Cells Urine Bacteria Urine Culture Comments Nasal Influenza B PCR Nasal Influenza A PCR Nasal RSV (PCR) Nasal SARS-CoV-2 (PCR) 05/28/23 05/28/23 11:52 12:41 WBC RBC Hgb Hct MCV MCH MCHC RDW Plt Count MPV Neut # (Auto) Lymph # (Auto) [place] # (Auto) Eos # (Auto) Baso # (Auto) Absolute Nucleated RBC Nucleated RBC % Sodium Potassium Chloride Carbon Dioxide Anion Gap BUN Creatinine Estimated GFR (MDRD) Glucose Lactic Acid Calcium Total Bilirubin AST ALT Alkaline Phosphatase Total Protein Albumin Globulin Albumin/Globulin Ratio Urine Color DARK YELLOW Urine Clarity SL. CLOUDY Urine pH 7.0 Ur Specific [place] 1.020 Urine Protein TRACE Urine Glucose (UA) NEGATIVE Urine Ketones NEGATIVE Urine Occult Blood LARGE H Urine Nitrite NEGATIVE Urine Bilirubin NEGATIVE Urine Urobilinogen 1 (NORMAL) Ur Leukocyte Esterase SMALL H Urine RBC 11-25 H Urine WBC 11-25 H Urine WBC Clumps PRESENT Ur Squamous Epith Cells RARE Squamous Urine Bacteria Few Urine Culture Comments INDICATED Nasal Influenza B PCR NOT DETECTED Nasal Influenza A PCR NOT DETECTED Nasal RSV (PCR) NOT DETECTED Nasal SARS-CoV-2 (PCR) NOT DETECTED - Rads (name of study) No standard instances Relevant Findings:: Final report received PD Medical Decision Making - ED course Complexity details: reviewed old records, reviewed results, re-evaluated patient, considered differential, d/w patient ED course: 27-year-old female presented with cough, abdominal pain, and additional symptoms as listed above. She is about 8 days postop deep and salpingectomy. Patient initially tachycardic though afebrile here, but sepsis workup was undertaken given her recent surgery and her clinical complaints. Her labs are generally stable, white count is elevated at 13.7, otherwise stable CBC CMP, her lactate is 0.5, urinalysis suggestive of possible infection, there is blood, WBCs, bacteria without squames. Her chest x-ray was negative. Given her recent surgery, is concern for possible surgical abscess given area of patient's areas of pain and reported fever therefore did obtain a CT abdomen pelvis. There are signs of obstipation but no obstruction, no sign of abscess or other surgical site infection. There is some right lower lobe infiltrate seen on CT scan and given patient's cough, I we will treat her for possible pneumonia. Also treat the UTI so given patient's allergies I am going to give her 2 different medications, Macrobid for the UTI and azithromycin pack for mild pneumonia. I do believe the patient is stable for discharge home. Will follow blood cultures and urine cultures that were obtained. A COVID flu was negative. The patient is requesting ongoing narcotic pain medication. I discussed with her that she should be to the point where she does not need the narcotic pain medication an ymore given no postoperative complication seen on CT and encouraged her to reduce the use especially in the setting of the obstipation seen on CT. I will give her 6 additional tablets but advise no further narcotic pain medication will be given for this issue from the ER and if she needed ongoing pain management she needs to follow-up with her surgeon and PCP. I discussed return precautions if new or worsening symptoms however and patient was discharged home in stable condition. Departure - Departure Disposition: 01 Home, Self Care Clinical Impression: UTI (urinary tract infection) Qualifiers: Urinary tract infection type: acute cystitis Hematuria presence: without hematuria Qualified Code(s): N30.00 - Acute cystitis without hematuria Right lower lobe pneumonia Qualifiers: Pneumonia type: due to unspecified organism Qualified Code(s): J18.9 - Pneumonia, unspecified organism Condition: Good Instructions: ED Pneumonia Adult, ED UTI Cystitis Female Prescriptions: Nitrofurantoin [Macrobid] 100 mg PO BID #10 cap HYDROcod/ACETAM 5/325 [[place] 5/325] 1 - 2 tablet PO Q6H PRN #6 tablet PRN Reason: Pain Azithromycin [Zithromax] 0 mg PO DAILY #6 tablet Comments: Your CT scan showed constipation, no signs of postoperative abscess or infectio n. The constipation is likely due to to the narcotic pain medication you have been on. This can cause discomfort in the abdomen. Treatment is [id number] bowel regimen and also reducing the use of narcotic pain medicine. You do have a possible urinary tract infection however and your urine which I am going to treat with antibiotics and a possible mild pneumonia in the right side of your lung. I have given you 2 different antibiotics for these issues given your allergies. I am also giving you if short course of pain medication but you should no longer need narcotic pain medication in the next few days. Please follow-up with your surgeon if you are still having pain related to your surgery. I am prescribing a short course of narcotic pain medication for you. These are potentially dangerous and addictive medications that should be used carefully. These medications may constipate you. Take an ixcb-bry-octvqsv stool softener (docusate) twice daily with plenty of water while taking these medications. If you go 24 hours without a bowel movement, take [id number]-[id number] miralax, per package instructions. Do not drink or drive while taking these medications. If you received narcotic or sedating medications while in the emergency department, do not drive for 24 hours. Store this medication in a safe, secure place and out of reach of children. It is a violation of federal law to give or sell this medication to another person or to use in a manner other than prescribed. The ED will not refill narcotic prescriptions, including prescriptions lost or stolen. To dispose of unwanted medications: 1. [facility] provides a drop box for medication in pill form only (no liquids) 8:00 am to 4:30 p.m. Wednesday-Wednesday in the lobby of the [facility], [address] [place] [address]. Empty pills into ziplock bag before disposal. Call [phone] for information. 2.[employer] is a free service available to all [facility] residents. Go to [email or web address] Note that many narcotic pain relievers also contain Tylenol/acetaminophen. Please ensure that your total dose of acetaminophen from all sources does not exceed 3 g (3000 mg) per day. Forms: PCP List Discharge Date/Time: 05/28/23 14:02
[2023-05-28 13:19] VITALS: BP 102/58
--- NOTE | 2023-05-28 13:45 | CT Report ---
PROCEDURE: ABDOMEN/PELVIS W INDICATIONS: post op pain, right side, s/p salpingectomy CONTRAST: Nonionic intravenous contrast Omni 300 100ml TECHNIQUE: After the administration of intravenous contrast, a CT scan of the abdomen and pelvis was performed. Images were recorded and evaluated at appropriate window settings. Reformats: coronal and sagittal. F or radiation dose reduction, the following was used: automated exposure control, adjustment of mA and /or kV according to patient size. COMPARISON: None. FINDINGS: Image quality: Excellent. Lung bases and heart: Unremarkable except for a slight degree of alveolar infiltration, chronicity un certain, just above the diaphragm at the right lower lobe.. Liver: No solid mass. Gallbladder and biliary tree: Spleen: No splenomegaly. Pancreas: No pancreatic ductal dilation. Adrenals: No adrenal nodule. Kidneys and ureters: No hydronephrosis. No renal cystic lesion which requires follow up. No solid mas s. Bowel and peritoneum: No bowel distension. No pathologic free fluid. Generalized colonic obstipation. Lymph nodes: No central or retroperitoneal adenopathy. Vessels: No infrarenal aortic aneurysm. PELVIS Reproductive organs: Unremarkable. Bladder: No abnormal wall thickening, accounting for underdistention. Pelvic lymph nodes: No pelvic adenopathy by size criteria. Bones: No aggressive osseous abnormality. Other: No significant ventral or inguinal hernia. Generalized colonic obstipation, no suspicion for a bscess. IMPRESSION: Minimal patchy alveolar infiltration just above the right hemidiaphragm. Generalized colonic obstipation within the abdomen and pelvis on the right and the left as a potentia l etiology of symptomatology. No abscess found, no hematoma or operative complication identified. Reviewed by: Watson Martinez MD on 05/28/2023 1:43 PM PST Approved by: Watson Martinez MD on 05/28/2023 1:43 PM PST Station ID: [id number]
[2023-05-28 13:53] LABS: INFLUENZA A- RESP PCR PANEL NOT DETECTED; INFLUENZA B - RESP PCR PANEL NOT DETECTED; RSV- RESP PCR PANEL NOT DETECTED; SARS-CoV-2 -RESP PCR PANEL NOT DETECTED
[2023-05-28 14:06] VITALS: O2SAT 99
[2023-05-28] MEDS ORDERED: iohexoL-300 100 ML VIAL IVP ONE (15:51)
== END 2023-05-28 14:02 | disposition home or self-care (01) ==
LOC: ED 11:18
DX: J18.9 Pneumonia, unspecified organism (principal); N30.00 Acute cystitis without hematuria; K59.00 Constipation, unspecified
CPT/HCPCS: 36415; 71045; 74177; 80053; 81001; 83605; 85025; 87040; 87086; 87637; 93005; 96374; 99284; A9270; Q9967

== ENCOUNTER 2023-09-24 23:02 | Emergency (ER) | payer MEDICAID ==
[2023-09-24 23:19] VITALS: O2SAT 98
[2023-09-25] MEDS: KETOROLAC 30 MG/ML VIAL IM STA (00:21)
--- NOTE | 2023-09-25 00:39 | ED Physician Documentation ---
History of Present Illness - Stated complaint Stated Complaint: R EAR PX - Chief complaint Chief Complaint: Heent - History obtained from History obtained from: Patient - Additonal information Additional information: 27-year-old woman presents with bilateral ear pain, right worse than left, worsening after putting hydrogen peroxide in her ear today. It started at 1 PM and has progressively been worsening, with a burning sensation, decreased hearing and increased pressure in the ear. Denies instrumentation in the ear denies fever, sinus infection. 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: Tubal ligation, LEEP (Cervical surgery) - Present Medications Home Medications: Ambulatory Orders Medication Instructions Recorded Confirmed Ofloxacin [Ofloxacin Otic drops] 5 ml OT QID #5 ml 09/25/23 - Allergies Allergies/Adverse Reactions: Allergies Allergy/AdvReac Type Severity Reaction Status Date / Time Penicillins Allergy Severe Anaphylaxis Verified 09/24/23 23:16 cetirizine HCl * Allergy Intermediate Respiratory Verified 09/24/23 23:16 [From Zyrtec] codeine Allergy Hives Verified 09/24/23 23:16 diphenhydramine Allergy Hives Verified 09/24/23 23:17 guaifenesin Allergy Hives Verified 09/24/23 23:17 loratadine [From Claritin] Allergy Respiratory Verified 09/24/23 23:16 oxycodone [From Roxicodone] Allergy Hives Verified 09/24/23 23:16 Sulfa (Sulfonamide Allergy Hives Verified 09/24/23 23:16 Antibiotics) - Social History Does the pt smoke?: No Smoking Status: Never smoker Does the pt drink ETOH?: No Does the pt have substance abuse?: No - Immunizations Immunizations are current?: No Immunizations: No immun - POLST Patient has POLST: No PD ED PE NORMAL - Vitals Vital signs reviewed: Yes - General General: Alert and oriented X 3, No acute distress, Well developed/nourished, Other (Agitated appearing) - HEENT HEENT: Atraumatic, PERRL, EOMI, Moist mucous membranes, Pharynx benign, Other (Bilateral ear canals erythematous consistent with otitis externa. TM clear on the left. Right TM occluded by cerumen) - Neck Neck: Supple, no meningeal sign Results - Vitals Vitals: Vital Signs - 24 hr 09/24/23 09/25/23 23:11 01:05 Temperature 36.6 C 36.9 C Heart Rate 89 73 Respiratory 18 18 Rate Blood Pressure 122/80 99/58 L O2 Saturation 98 98 Oxygen O2 Source Room air PD Medical Decision Making - ED course ED course: 27-year-old woman presents with bilateral otitis externa. Antibiotic drops sent to pharmacy. Pain meds provided in the emergency department. Return precautions given. Departure - Departure Disposition: 01 Home, Self Care Clinical Impression: Otitis externa Condition: Stable Instructions: ED Otitis Externa Prescriptions: Ofloxacin [Ofloxacin Otic drops] 5 ml OT QID #5 ml Comments: You were seen in the emergency department for External ear infection (swimmer's ear). Antibiotic ear drops sent electronically to [facility]. Please follow-up with your primary care provider and return to the emergency department if you have any new or worsening symptoms or other concerns. Forms: PCP List Discharge Date/Time: 09/25/23 01:05
[2023-09-25] MEDS: HYDROmorphone 1 MG/ML CARPUJECT IM STA (00:49)
[2023-09-25] MEDS: LORazepam 0.5 MG TABLET PO STA (00:49)
[2023-09-25 01:14] VITALS: BP 99/58
== END 2023-09-25 01:05 | disposition home or self-care (01) ==
LOC: ED 23:02
DX: H60.93 Unspecified otitis externa, bilateral (principal)
CPT/HCPCS: 96372; 99283; A9270; J1170

== ENCOUNTER 2023-09-25 12:51 | Emergency (ER) | payer MEDICAID, OTHER ==
[2023-09-25 13:16] VITALS: BP 94/69; O2SAT 100
--- NOTE | 2023-09-25 13:18 | ED Physician Documentation ---
PD ARCINIEGA HEENT - Stated complaint Stated Complaint: EAR PX - Chief complaint Chief Complaint: Heent - History obtained from History obtained from: Patient - Additional information Additional information: Patient is a 27-year-old female presenting for evaluation of bilateral ear pain. She was seen last night for similar symptoms and diagnosed with bilateral otitis externa. Patient reports symptoms started yesterday afternoon after she used hydrogen peroxide in her ears. She denies using Q-tips or other foreign bodies in the ear canals. She has not yet picked up her otic drops. She has tried Ibuprofen for pain today without any improvement. She reports having significant nasal congestion and feels a lot of pressure in her ears.No fevers, cough, vomiting. Review of Systems Constitutional: denies: Fever Ears: reports: Ear pain. 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: Tubal ligation, LEEP (Cervical surgery) - Present Medications Home Medications: Ambulatory Orders Medication Instructions Recorded Confirmed Fluticasone [Flonase] 1 sprays BILL BID #16 gm 09/25/23 Ofloxacin [Ofloxacin Otic drops] 5 ml OT QID #5 ml 09/25/23 Ofloxacin [Ofloxacin Otic drops] 10 drops EACHEAR DAILY 7 Days #5 ml 09/25/23 - Allergies Allergies/Adverse Reactions: Allergies Allergy/AdvReac Type Severity Reaction Status Date / Time Penicillins Allergy Severe Anaphylaxis Verified 09/25/23 13:07 cetirizine HCl * Allergy Intermediate Respiratory Verified 09/25/23 13:07 [From Zyrtec] codeine Allergy Hives Verified 09/25/23 13:07 diphenhydramine Allergy Hives Verified 09/25/23 13:07 guaifenesin Allergy Hives Verified 09/25/23 13:07 loratadine [From Claritin] Allergy Respiratory Verified 09/25/23 13:07 oxycodone [From Roxicodone] Allergy Hives Verified 09/25/23 13:07 Sulfa (Sulfonamide Allergy Hives Verified 09/25/23 13:07 Antibiotics) - Social History Does the pt smoke?: No Smoking Status: Never smoker Does the pt drink ETOH?: No Does the pt have substance abuse?: No - Immunizations Immunizations are current?: No Immunizations: No immun - POLST Patient has POLST: No PD ED PE NORMAL - General General: Alert and oriented X 3, Well developed/nourished, Other (Tearful, anxious) - HEENT HEENT: Atraumatic, Moist mucous membranes, Pharynx benign, Other (Bilateral ear canals with erythema and swelling, right TM is not visualized due to presence of cerumen, left TM appears clear) - Neck Neck: Supple, no meningeal sign - Respiratory Respiratory: No respiratory distress - Derm Derm: Warm and dry - Neuro Neuro: Normal speech Results - Vitals Vitals: Vital Signs - 24 hr 09/25/23 13:02 Temperature 37 C Heart Rate 103 H Respiratory 15 Rate Blood Pressure 94/69 O2 Saturation 100 Oxygen O2 Source Room air PD Medical Decision Making - ED course ED course: Patient with exam findings consistent with otitis externa. Has not yet picked up her otic drops that were prescribed last night. Also reports having nasal congestion and so we will prescribe Flonase.No signs of mastoiditis, meningitis.Patient given a one-time dose of pain medication here and understands to continue with her antibiotic drops as well as anti-inflammatories. 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 Have also sent a prescription for a nasal decongestant to [facility]. Continue with anti-inflammatory such as acetaminophen or ibuprofen. Return to the ER with worsening symptoms such as abnormal drainage from the ear canals or any other concerns. Forms: PCP List Discharge Date/Time: 09/25/23 13:31
[2023-09-25] MEDS: HYDROcod/ACETAM 5/325 MG TABLET PO STA (13:22)
== END 2023-09-25 13:31 | disposition home or self-care (01) ==
LOC: ED 12:51
DX: H60.92 Unspecified otitis externa, left ear (principal); R09.81 Nasal congestion
CPT/HCPCS: 99283; A9270